=== PATIENT | male | born 1960 | race Caucasian/White ===

== ENCOUNTER 2019-11-08 10:22 | Inpatient (IN) | payer OTHER ==
[2019-11-08 11:03] LABS: #Eosinphils 0.1 thou/uL (0.0-0.7); #Lymphocytes 0.6 thou/uL (1.20-3.40); #Monocytes 0.4 thou/uL (0.11-0.59); #Neutrophils 7.4 thou/uL (1.40-6.50); %Eosinophils 1.1 % (0.0-10.0); %Lymphocytes 7.2 % (21.0-51.0); %Neutrophils 86.7 % (42.0-75.0); Hemoglobin 10.9 g/dL (14.0-18.0); Mean Corpuscular HGB CONC 33.5 g/dL (32.0-36.0); Mean Corpuscular Hemoglobin 29.1 pg (27.0-31.0); Mean Corpuscular Volume 86.9 fL (78.0-98.0); Mean Platelet Volume 7.2 fL (7.4-10.4); Platelet Count 145 thou/uL (130-400); RBC Distribution Width 12.5 % (11.5-14.5); Red Blood Cell (RBC) Count 3.75 mill/uL (4.70-6.10); White Blood Cell (WBC) Count 8.5 thou/uL (4.8-10.8)
[2019-11-08] MEDS ORDERED: Ketorolac Tromethamine 30 MG/ML VIAL ONE (11:12)
[2019-11-08 11:24] LABS: ALT (SGPT) 19 U/L (8-55); AST (SGOT) 34 U/L (5-34); Albumin 2.9 g/dL (3.5-5.0); Alkaline Phosphatase 78 U/L (40-110); Anion Gap 12 mmol/L (10-20); BUN (Urea Nitrogen) 9 mg/dL (8.4-25.7); Bilirubin, Total 0.9 mg/dL (0.2-1.2); Calc. Creatinine Clearance 0 mL/min (70-130); Calcium 8.6 mg/dL (7.8-10.44); Carbon Dioxide 27 mmol/L (22-29); Chloride 93 mmol/L (98-107); Estimated GFR-MDRD Greater than 90; Globulin 4.3 g/dL (2.4-3.5); Glucose 277 mg/dL (70-105); Potassium 4.3 mmol/L (3.5-5.1); Protein, Total 7.2 g/dL (6.0-8.3); Sodium 128 mmol/L (136-145)
--- NOTE | 2019-11-08 12:21 | CT ---
CT abdomen and pelvis with IV contrast HISTORY:. Drainage from ventral hernia abscess. COMPARISON: 11/04/2019. FINDINGS: Small amount of bilateral pleural fluid is again demonstrated. Large mass of the left breas t is similar in appearance to the previous exam. TIPS stent in place. Hyperdense stones of the gallbladder fossa and extending inferiorly to the subhe patic space are similar in appearance to the prior study with small amount of adjacent gas. Small amount of pneumobilia also apparent. There is a very subtle wedge-shaped area of decreased density at the lateral right liver lobe dome. Possibly a small infarct or mass. Tiny cysts of the kidneys. Urinary bladder is decompressed by Lloyd catheter and contains small amount of intraluminal gas. At the far anterior margin of the spleen is a very small 1.6 cm rounded fluid collection with periphe ral enhancement. The large right abdominal ventral hernia is slightly smaller than on the most recent exam. It now oleg sures up to 20.7 cm greatest oblique width by 7.6 cm depth. Percutaneous drain has been pulled back since its placement 4 days ago, although the loop remains within the abscess, so that it should be dr fontaine. The large skin defect over the abscess at the right lower quadrant has become more pronounced, with f luid on the surface of the skin. There is a 1.2 cm hyperdense stone in the dependent portion of the ventral hernia abscess. IMPRESSION : While the large abscess associated with the right ventral abdominal wall hernia has decreased slightl y in size, there is now a large area of skin defect over the superficial surface with fluid on the skin surface, correlating with the clinical findings of external rupture. Catheter has been pulled ba ck slightly but remains within the abscess cavity. The small calcification within the ventral hernia abscess is likely related to the ruptured gallbladd er. Additional stones and small amount of gas remain immediately inferior to the liver. Large left breast mass again demonstrated. Small bilateral pleural effusions.
[2019-11-08] MEDS ORDERED: Iopamidol-370 76% 500 ML 1 ML ONE (13:30)
--- NOTE | 2019-11-08 13:32 | CT ---
CT ABDOMEN AND PELVIS WITH IV CONTRAST: HISTORY: Right perianal swelling and pain. COMPARISON: None. FINDINGS: There are dependent changes in the lung bases. There are changes of cirrhosis of the liver, cholelit hiasis, and splenomegaly (19 cm). The pancreas, adrenal glands, and kidneys are unremarkable. No fr ee air, free fluid, or lymphadenopathy is seen in the abdomen or pelvis. There are vascular calcific ations without evidence of aneurysmal dilatation of the abdominal aorta. There are degenerative gibbons ges in the spine. There is a Lloyd catheter in the urinary bladder which is decompressed with presence of air. There i s a 6 x 8 cm fluid collection in the region of the right prostate and adjacent pelvis. A smaller 2 c m similar lesion is seen posteriorly to the left of midline within the prostate. Another mass is seen in the right perirectal region extending inferiorly into the perineum and glutea l fold measuring about 7 cm in AP dimension. This has the attenuation values of soft tissue. IMPRESSION: Pelvic, perineal, and right gluteal findings may be due to infection or malignancy/metastatic disease . Discussed over the telephone with the ER physician, Dr. Sid Dyer, at 11:59 a.m. CODE MENDEZ POS: JESSICA
[2019-11-08] MEDS ORDERED: Cefepime 2 GM VIAL ONE (14:16)
[2019-11-08] MEDS ORDERED: Vancomycin 1 GM/200 ML BAG ONE (14:59)
[2019-11-08] MEDS ORDERED: Dextrose 5% in Water 1,000 ML IV PRN (18:16)
[2019-11-08] MEDS ORDERED: Dextrose 50% Abboject 50 ML SYRINGE SLOW IVP PRN (18:16)
[2019-11-08] MEDS ORDERED: Insulin Regular 300 UNITS/3 ML VIAL SC PRN (18:16)
[2019-11-08 19:05] VITALS: BMI 27.4
--- NOTE | 2019-11-08 19:46 | HP ---
PRIMARY CARE PHYSICIAN: Out of town. CHIEF COMPLAINT: Pain in rectal area. HISTORY OF PRESENT ILLNESS: The patient is a 58-year-old male with past medical history significant for diabetes and elevated cholesterol. He presented to the ER today for perirectal pain that has lasted for 3 weeks. The patient states that he had recently been treated at [facility] for this pain and also generalized weakness. He stated whenever he would try to stand, he would urinate or possibly defecate on himself as he is unable to make it to the toilet in time and was seen in the ER and admitted at that hospital for that condition. He is also having real painful urination. They prescribed him IV antibiotics and [place] [facility] while he receives these antibiotics. Normally at home, he is ambulatory and self-sufficient. While at the hospital at [facility], they did a CT scan which he does not know the results of, but that showed a "sore on his colon." He states that when he was transferred to the usp in [place], he was told he will be receiving 3 different antibiotics by IV daily and he has only been receiving one since he got here. He did test positive for COVID-19 approximately 2 weeks ago in the usp. He said he was asymptomatic with this finding. Today, in the ER, they completed blood work and a pelvic CT. The patient also states that he has had loose stools for a number of weeks now. He is unsure if it started after his antibiotics were began at the other hospital or if it was occurring before then. PAST MEDICAL HISTORY: Diabetes type 2, elevated cholesterol. PAST SURGICAL HISTORY: Left BKA in 2017 and a cardiac stent. ALLERGIES: MORPHINE CAUSES HALLUCINATIONS. MEDICATIONS: As reported from the ER; 1. Docusate 100 mg oral 2 times a day. 2. Melatonin 3 mg oral at night. 3. [place] 10 mg/325 mg 1 tab every 6 hours as needed for pain. 4. Vancomycin 1.25 g IV piggyback once in the morning. 5. Buspirone 15 mg oral 2 times a day. 6. Metformin a 1000 mg 2 times a day. 7. Clopidogrel 75 mg once a day. 8. Gabapentin 600 mg 3 times a day. 9. Simvastatin 20 mg at night. SOCIAL HISTORY: The patient normally lives at home in a self-sufficient home on his own. However, he is currently living at a usp in [facility] so he can receive IV antibiotics. The patient quit smoking a few months ago. He denies any alcohol or drug use. FAMILY HISTORY: No relevant family history. REVIEW OF SYSTEMS: All other review of systems are negative unless noted in the HPI. PHYSICAL EXAMINATION: VITAL SIGNS: Blood pressure 132/71, pulse 63, respiratory rate 15, temp 98.9 orally, pain zero, O2 saturation 98% on room air. GENERAL: The patient in no apparent distress. HEAD: Atraumatic, normocephalic. EYES: PERRLA. Extraocular muscles are intact. ENT: Mucous membranes moist. NECK: Normal range of motion. Trachea midline. RESPIRATORY: Regular chest rise with breath sounds clear. No wheezing, no rales, no rhonchi. CARDIOVASCULAR: Regular rate and rhythm. No murmurs, no gallops. No rubs. ABDOMEN: Bowel sounds normal. Nontender. No guarding. No rigidity. GENITOURINARY: Large firm area of swelling and induration in the right medial aspect of the right buttock. EXTREMITIES: Normal range of motion. Posterior tibial pulse intact on the right. There is a left BKA. NEURO: The patient oriented to person, place, and time. Normal speech. SKIN: Warm, dry, and intact. Increased warmth at a right buttock site. LABORATORIES AND IMAGING: White blood cells 8.5, hemoglobin 10.9, hematocrit 32.6. Sodium 128, potassium 4.3, chloride 93, BUN 9, creatinine 0.81 and GFR greater than 90, glucose 277. Abdomen and pelvis CT shows pelvic, perineal, and right gluteal findings that may be due to infection or malignancy, metastatic disease, splenomegaly at 19 cm. There is a 6 x 8 cm fluid collection in the region of the right prostate and adjacent pelvis. There is a smaller 2 cm similar lesion seen posteriorly to the left of midline within the prostate. There is another mass that is seen in the right perirectal region extending inferiorly into the perineum and gluteal fold measures about 7 cm in AP dimension and has attenuation values of a soft tissue. IMPRESSION AND PLAN: After the CT findings, General Surgery, Urology, and Infectious Disease were all consulted. The patient to continue his IV antibiotics that were started in the ER, monitor for any further signs of infection, continue to watch his lab work daily or more often if needed. Due to complaint of patient's loose stools, we will test for C difficile with his recent antibiotic usage. We will also attempt to control patient's pain with p.r.n. medications. His blood sugars will be monitored a.c. and at bedtime with sliding scale insulin if they are elevated. The patient will be inpatient on the medical floor. Medical records have been requested from [facility] as his given history was scattered some during the interview. He wishes to be a full code. His surrogate decision maker is his ex-, Nela Gutierrez. This patient has been discussed with Dr. Perdomo. Job ID: [id number]
[2019-11-08] MEDS: Ketorolac Tromethamine 30 MG/ML VIAL IVP PRN (20:38)
[2019-11-08] MEDS: Famotidine 20 MG TAB PO SCH (20:38)
[2019-11-08] MEDS: HumaLOG 300 UNITS/3 ML VIAL SC PRN (21:48)
[2019-11-08] MEDS: Vancomycin 1.5 GRAM/300 ML BAG 1.5 GM in Premix Bag 1 BAG IVPB SCH (21:51)
[2019-11-08] MEDS: HYDROcodone/Acetaminophen 5/325 mg Tablet PO PRN (21:59)
[2019-11-09] MEDS: Cefepime 2 GM in Sodium Chloride 0.9% 100 ML IVPB SCH ×2 (02:05→13:23)
[2019-11-09] MEDS: Ketorolac Tromethamine 30 MG/ML VIAL IVP PRN ×3 (02:06→15:39)
[2019-11-09] MEDS ORDERED: Vancomycin 1 GM in Premix Bag 1 BAG IVPB SCH (03:00)
[2019-11-09] MEDS: HYDROcodone/Acetaminophen 5/325 mg Tablet PO PRN (04:47)
[2019-11-09] MEDS: Vancomycin 1.5 GRAM/300 ML BAG 1.5 GM in Premix Bag 1 BAG IVPB SCH ×3 (05:05→22:50)
[2019-11-09] MEDS: HumaLOG 300 UNITS/3 ML VIAL SC PRN ×4 (05:39→20:22)
[2019-11-09 06:05] LABS: #Eosinphils 0.2 thou/uL (0.0-0.7); #Lymphocytes 0.7 thou/uL (1.20-3.40); #Monocytes 0.5 thou/uL (0.11-0.59); #Neutrophils 6.6 thou/uL (1.40-6.50); %Basophils 0.6 % (0.0-1.0); %Lymphocytes 8.9 % (21.0-51.0); %Monocytes 5.9 % (0.0-10.0); %Neutrophils 82.6 % (42.0-75.0); Hemoglobin 10.2 g/dL (14.0-18.0); Mean Corpuscular HGB CONC 32.3 g/dL (32.0-36.0); Mean Corpuscular Hemoglobin 28.3 pg (27.0-31.0); Mean Corpuscular Volume 87.4 fL (78.0-98.0); Mean Platelet Volume 7.9 fL (7.4-10.4); Platelet Count 145 thou/uL (130-400); RBC Distribution Width 12.7 % (11.5-14.5)
[2019-11-09 06:23] LABS: Anion Gap 11 mmol/L (10-20); BUN (Urea Nitrogen) 11 mg/dL (8.4-25.7); Calc. Creatinine Clearance 134 mL/min (70-130); Calcium 8.3 mg/dL (7.8-10.44); Carbon Dioxide 22 mmol/L (22-29); Chloride 97 mmol/L (98-107); Estimated GFR-MDRD Greater than 90; Glucose 265 mg/dL (70-105); Potassium 4.2 mmol/L (3.5-5.1); Sodium 126 mmol/L (136-145)
[2019-11-09] MEDS: Famotidine 20 MG TAB PO SCH ×2 (08:26→20:00)
--- NOTE | 2019-11-09 12:02 | PDOC.HOSPP ---
- Subjective Encounter Date: 11/09/19 Encounter Time: 12:00 Subjective: Patient complains of severe anxiety from being in the hospital, asking for Xanax. Continued rectal pain, weakness in legs. Usually uses a wheelchair at home, though does have a prosthesis for his left BKA. [facility] to get his IV infusions through his PICC line. Patient not sure where the bacteria they were treating was isolated from, but thinks either the urine or the blood. No surgical procedures or biopsy/drainage done in [facility] per patient report. - Objective Vital Signs & Weight: Vital Signs (12 hours) Temp Pulse Resp BP Pulse Ox 11/09/19 11:48 97.8 F 56 L 18 150/73 H 97 11/09/19 08:30 98.4 F 65 16 112/64 99 11/09/19 04:00 98.2 F 63 18 134/65 99 Weight Weight 208 lb I&O: 11/08/19 11/09/19 11/10/19 06:59 06:59 06:59 Intake Total 1500 Output Total 1200 Balance 300 Result Diagrams: 11/09/19 05:53 11/09/19 05:53 Additional Labs: Accuchecks 11/09/19 04:55 POC Glucose 282 H Hospitalist ROS - Review of Systems Constitutional: reports: chills. denies: fever Respiratory: denies: cough, shortness of breath Cardiovascular: denies: chest pain, palpitations Gastrointestinal: denies: nausea, vomiting, abdominal pain, diarrhea, constipation Other: anxiety, stressed, feels like things are overwhelming - Medication Medications: Active Medications Generic Name Dose Route Start Last Admin Trade Name Dorene PRN Reason Stop Dose Admin Famotidine 20 mg 11/08/19 21:00 11/09/19 08:26 Pepcid PO 20 mg BID PAULA Administration Cefepime HCl 2 gm/ Sodium 100 mls @ 200 mls/hr 11/09/19 02:00 11/09/19 02:05 Chloride IVPB 100 mls 0200,1400 PAULA Administration Vancomycin HCl 1.5 gm/ Device 300 mls @ 200 mls/hr 11/08/19 22:00 11/09/19 05 :05 IVPB 300 mls Q8HR PAULA Administration Insulin Human Lispro 0 units 11/08/19 18:16 07/21/20 05:39 Humalog SC 4 unit .MILD SLIDING SCALE PRN Administration Mild Correctional Scale Ketorolac Tromethamine 30 mg 11/08/19 18:16 11/09/19 08:27 Toradol IVP 11/13/19 12:16 30 mg Q6H PRN Administration Pain - Exam General Appearance: NAD, awake alert ENT: moist mucosa Heart: RRR, no murmur, no gallops, no rubs Respiratory: CTAB, no wheezes, no rales, no ronchi Gastrointestinal: soft, non-tender, non-distended, normal bowel sounds Psychiatric: normal behavior, A&O x 3 Psychiatric - other findings: anxious and a bit tearful Hosp A/P (1) Pelvic fluid collection Code(s): R18.8 - OTHER ASCITES Status: Acute Plan: abcess vs cyst vs cancer (2) Diabetes mellitus type 2 in nonobese Code(s): E11.9 - TYPE 2 DIABETES MELLITUS WITHOUT COMPLICATIONS Status: Chronic (3) Hyperlipidemia Code(s): E78.5 - HYPERLIPIDEMIA, UNSPECIFIED Status: Chronic (4) Peripheral neuropathy Code(s): G62.9 - POLYNEUROPATHY, UNSPECIFIED Status: Chronic (5) Anxiety Code(s): F41.9 - ANXIETY DISORDER, UNSPECIFIED Status: Acute - Plan Patient was on Vancomycin for likely infection, [facility] while receiving. Worsened symptoms so admitted her. Will need to obtain old records from [facility]. General surgery and urology consulted. Low sodium, will ask Dr. Carter for his help. Blood sugars uncontrolled, may need to add scheduled insulin. Resume home meds first.
[2019-11-09] MEDS: ALPRAZolam 0.25 MG TAB PO PRN (13:19)
[2019-11-09] MEDS: HYDROcodone/Acetaminophen 10/325 mg Tablet PO PRN ×2 (13:19→20:01)
[2019-11-09] MEDS: Gabapentin 300 MG CAP PO SCH ×2 (15:09→20:00)
--- NOTE | 2019-11-09 18:56 | CON ---
DATE OF CONSULTATION: HISTORY OF PRESENT ILLNESS: Lew Bueno is a 58-year-old male, who spent some time in the hospital in [place], transferred to a care facility halfway recently. He has had an indwelling Lloyd catheter for some time. He has been treated with intravenous antibiotics for some sort of infection. He was seen at this facility for complaints of pain. He was appreciated to have right perirectal gluteal induration and redness. He is afebrile. His white count is normal. He underwent a CAT scan of the abdomen and pelvis, revealing some periprosthetic inflammatory changes and abscess. He has been admitted by the Medical Service. Dr. Stanford has seen him as well as Dr. Sullivan. I have talked to Dr. Stanford. Plan at this time is to go to the operating room tomorrow (had regular diet today) and plan incision and drainage of abscesses and Dr. Stanford will plan a cystoscopy. The patient states he has had a chronic indwelling Lloyd because of painful urination and I just left it in place. ALLERGIES: LISTED CODEINE AND MORPHINE. MEDICATIONS: Home medications; 1. Simvastatin. 2. Gabapentin. 3. Plavix. 4. Metformin. 5. Buspirone. 6. Vancomycin. 7. MiraLAX. 8. Melatonin. 9. Hydrocodone. PAST SURGICAL HISTORY: Aortobifem, bilateral fem-pops, left BKA, history of cardiac stent. PAST MEDICAL HISTORY: Diabetes mellitus type 2, elevated cholesterol. SOCIAL HISTORY: The patient normally lives at home prior to this current illness, but he was admitted to a care facility, receiving intravenous antibiotics. The patient quit smoking several months ago. No alcohol or drug use in the past. He has worked in construction in the past. REVIEW OF SYSTEMS: Noncontributory otherwise. PHYSICAL EXAMINATION: VITAL SIGNS: Temperature 97.8 degrees, pulse 56, blood pressure 150/73. Weight 208 pounds, height is 6 feet and 1 inches, and 27 BMI. HEAD EARS, EYES, NOSE, AND THROAT: Unremarkable. LUNGS: Clear to auscultation. CARDIAC: Regular rate and rhythm without murmur or gallop. ABDOMEN: Soft, nontender, midline scar per above. EXTREMITIES: Aortobifemoral bypass. He has palpable femoral pulses bilaterally. He has a left BKA. : He has a Lloyd catheter in place. Right perirectal area is indurated and red. Extremities, as noted above, no ankle edema. LABORATORY DATA: White count 8, hemoglobin 10.2. BUN and creatinine are 11 and 0.82. ASSESSMENT AND PLAN: 1. Severe periprostatic and vesicular changes, cystoscopy per Dr. Stanford. Chronic indwelling Lloyd, treatment per Dr. Stanford. Right gluteal perirectal abscess, probably secondary to a periprosthetic infection, we will plan incision and drainage tomorrow along with Dr. Stanford with cystoscopy. 2. Peripheral arterial disease. 3. History of tobacco abuse. 4. Infectious Disease consult pending. Job ID: [id number]
[2019-11-09 19:51] LABS: Hemoglobin A1c 9.7 % (4.0-6.0)
[2019-11-09] MEDS: busPIRone HCl 5 MG TAB PO SCH (20:00)
[2019-11-09] MEDS: Atorvastatin Calcium 10 MG TAB PO SCH (20:00)
[2019-11-09] MEDS: Melatonin 3 MG TAB PO PRN (20:01)
[2019-11-09] MEDS: Polyethylene Glycol 3350 17 GM Packet PO SCH (20:02)
[2019-11-09] MEDS: Docusate 100 MG CAP PO SCH (20:21)
[2019-11-09 21:49] LABS: Vancomycin, Trough 23.2 ug/mL
[2019-11-10 00:08] LABS: HIV (1/2) Antibody/Antigen Non-Reactive (NonReactive); HIV 1/2 INDEX 0.25 S/CO (<1.00)
[2019-11-10 00:11] LABS: Hep C IgG Ab Reflex HepC Qnt (NonReactive)
[2019-11-10] MEDS: ALPRAZolam 0.25 MG TAB PO PRN ×3 (00:29→23:03)
[2019-11-10] MEDS: Ketorolac Tromethamine 30 MG/ML VIAL IVP PRN ×2 (00:29→08:44)
[2019-11-10] MEDS: Cefepime 2 GM in Sodium Chloride 0.9% 100 ML IVPB SCH ×2 (00:45→14:55)
--- NOTE | 2019-11-10 01:14 | CON ---
DATE OF CONSULTATION: 11/09/2019 REASON FOR CONSULTATION: History of COVID positive PCR a few weeks ago as well as type 2 diabetes and inflammatory process in the pelvis/prostate area. HISTORY OF PRESENT ILLNESS: A 58-year-old, first admission to this hospital, who has a history of prior drug use, particularly methamphetamine and cocaine and alcoholism as well as liver cirrhosis, who used to live in [place] next to the [place] by himself. He developed severe constipation and rectal pain, so he was admitted to a small hospital in [place] and reportedly tested positive for COVID there about 2 to 3 weeks ago and in addition to that, they found out that he had an inflammatory process in the perirectal area. It is not clear to me that they did any surgical procedure. It looks like they did not and he was just given antimicrobial therapy intravenously through a PICC line in the right upper extremity. The patient was transferred to a shelter in this area to continue receiving the antimicrobials and the plan for him was to go back to [place] or some other place, he is not sure right now, but nonetheless, he developed fever and continued to experience severe pain in the rectal area, still had a Lloyd catheter in place and so he ended up being brought to this hospital on arrival. His BP was 111/66, pulse 69, and temperature 99.8, O2 saturation was 95% room air. He does not appear in distress. There was an area of inflammatory change in the perirectal area, particularly on the right side. There was pain on digital rectal examination. The CT of the abdomen was done and the results are reviewed below. The patient denies any headaches, visual symptoms, sore throat, odynophagia, or dysphagia. No back pain. No cough, sputum production, or chest pain. No abdominal pain. Still has a Lloyd catheter in place. PAST MEDICAL HISTORY: Type 2 diabetes, BKA left side resulting from complications of neuropathy and infections in the left foot. History of liver cirrhosis secondary to alcoholism, drug use including cocaine and methamphetamine, chronic smoking, type 2 diabetes, hyperlipidemia, coronary artery disease with prior cardiac stenting. SOCIAL HISTORY: As above. He is still smoking cigarettes, but has not used meth or cocaine for a long time and reportedly abstinent from alcoholic beverages. He used to live by himself in a trailer home close to [place]. He is currently admitted to a shelter in the area. ALLERGIES: CODEINE AND MORPHINE. CURRENT MEDICATIONS: Include BuSpar, cefepime, gabapentin, vancomycin, and metformin as well. FAMILY HISTORY: Noncontributory. PHYSICAL EXAMINATION: VITAL SIGNS: Current T-max 99.2, blood pressure 130/60, pulse 63, respirations 18, and O2 saturation 96%. SKIN: Shows the area of the right perirectal region, gluteal region with an area of induration and erythema extending for about 12 to 15 cm along the gluteal area and perirectal region starting at the perineum and extending towards the mid posterior aspect of the right gluteal region medial side. The left BKA is well healed. The right foot has some areas of onychodystrophy and paronychia. The patient has a PICC line inserted in the right upper extremity, which appears without any abnormalities. There is no lymphadenopathy. HEENT: Ocular movements are conjugate. The patient has only a few remaining teeth in the mouth. NECK: Supple. No jugular vein distention. LUNGS: Symmetric clear breath sounds. HEART: S1 and S2. Regular rate. No S3 or S4. ABDOMEN: Soft, not distended, or tender. No ascites. No bladder distention. Lloyd catheter in place. No testicular or scrotal abnormalities noted. RECTAL: Exam was not done this time due to pain. EXTREMITIES: His pulses are 1+ in the right foot. Cap refill is normal. Plantar responses are flexor. He moves extremities on command. He is awake, oriented, follows commands, pretty good recollection. LABORATORY DATA: White cell count 8.5, hemoglobin 10.9, platelets 145 with 86% neutrophils. Sodium 126, creatinine 0.82. Liver profile normal. Albumin 2.9. Urinalysis was not done yet. C difficile in stool was negative. IMAGING STUDY: The patient had an imaging study of the abdomen and pelvis and there was a Lloyd catheter dependent changes in the lung bases, findings of cirrhosis of the liver, cholelithiasis, splenomegaly. Urinary bladder was decompressed. There was a 6 x 8 cm fluid collection in the right prostate and adjacent pelvis. A smaller 2 cm similar lesion posteriorly to the left of the midline within the prostate gland. There was another mass seen in the right perirectal region extending inferiorly into the perineum and gluteal fold measuring about 7 cm. ASSESSMENT: 1. History of liver cirrhosis secondary to alcoholism. 2. Methamphetamine and cocaine use with unknown hepatitis C or human immunodeficiency virus status. 3. Recently reportedly tested positive for COVID 2 or 3 weeks ago at the shelter or at the hospital that he was admitted to in [place]. 4. Chronic constipation and inflammatory process in the perineal area, which was identified in [place], for which the patient was receiving IV antimicrobial therapy at the shelter. 5. Persistence of this inflammatory process with evidence of prostate fluid collection and perirectal phlegmon, probably an abscess versus malignancy. DISCUSSION: The differential diagnosis includes UTI with prostate abscess and then extension into the perirectal area versus malignancy in view of the chronic constipation and pain. An infectious process with prostatitis, prostate abscess is the more likely scenario with extension into the perirectal tissues of perineal area. The usual pathogens including gram-negative rods and Staphylococcus aureus are the likely culprits here. The COVID situation is a complicating factor. Most likely, he does not have significant viral load any longer. A repeat PCR has been ordered prior to any surgical intervention and we are still awaiting on the results. I think the current antimicrobial regimen appears to be adequate for now. We are awaiting on the surgical intervention. It looks like Dr. Galvan and Urology are going to participate in the case and see what the findings reveal after whatever procedure is undertaken. We will check hepatitis C and HIV for completeness sake. Job ID: [id number]
--- NOTE | 2019-11-10 01:31 | CON ---
DATE OF CONSULTATION: 11/09/2019 REFERRING: Family Medicine Service. REASON FOR CONSULT: Perirectal, periprosthetic abscess. HISTORY OF PRESENT ILLNESS: Mr. Bueno is a pleasant 58-year-old male with past medical history of diabetes, hypertension, peripheral vascular disease, status post left BKA, presents with protracted history of perirectal pain and upper and lower back abscess. This all began initially with a spider bite in his left upper cervical back region with an abscess. He also had a second insect bite noted in his right buttock region and has had infection, which has been treated in [place] for infection, pain. He states that since this began, he has had difficulty urinating, and difficulty having bowel movements. Of note, he tested positive for COVID-19 about two weeks ago in the correction. He states in the correction , he remained on IV antibiotics, in which he was at [facility], receiving IV antibiotics and transferred locally. Typically prior to all these events, the patient was residing in a private residence. He had no urologic symptoms of difficulty emptying his bladder before his abscess in the pelvis. Prior CT per review of records in [place] demonstrated "sore on his colon," this is likely reflecting his perirectal abscess, however, history is somewhat unclear. He was receiving three different daily antibiotics through his PICC line before being transferred to [facility]. In the emergency room, he had a staging pelvic CT scan, which demonstrates a large perirectal abscess and periprosthetic abscess, therefore, General Surgery and urologic consultation was obtained. The patient currently resting comfortably, he is pleasant, he is frustrated that no progress was made in [place] and was monitored with IV antibiotics and not drained for his abscess. PAST MEDICAL HISTORY: Includes type 2 diabetes, hypercholesteremia, coronary artery disease, and peripheral vascular disease. PAST SURGICAL HISTORY: Includes left BKA in 2017, cardiac stents, relates laparotomy in the remote past secondary to bowel obstruction, bilateral femoral stents per the patient. ALLERGIES: ALLERGIC TO MORPHINE, WHICH CAUSES HALLUCINATIONS. MEDICATIONS: Include, 1. Xanax. 2. Lipitor. 3. BuSpar. Currently on, 1. Cefepime. 2. Colace. 3. Pepcid. 4. Neurontin. 5. Sliding scale insulin. 6. Hydrocodone. 7. Toradol p.r.n. 8. LR. 9. Metformin. 10. Vancomycin. Home medications include, 1. Plavix. 2. Metformin as above. SOCIAL HISTORY: Typically lives at home, self-sufficient; however, he has been at correction in [place] due to IV antibiotics. History of tobacco abuse, quit few months ago. He denies illicit drug use or alcohol abuse. FAMILY HISTORY: Noncontributory. REVIEW OF SYSTEMS: 10-point review of systems as above, otherwise noncontributory. PHYSICAL EXAMINATION: VITAL SIGNS: Stable at temperature 98, pulse 63, respiratory rate 18, oxygen saturation 96%, and blood pressure 133/66. GENERAL: The patient is in no acute distress. Pleasant male, cooperative to physical exam. HEENT: Grossly unremarkable. I's and O's are 1500 in and 1200 out. He has an indwelling Lloyd catheter placed about a month ago. HEART: Regular rate. LUNGS: Clear. ABDOMEN: Soft. No rigidity. No rebound. There is midline laparotomy incision below to the level of the umbilicus. No evidence of incisional hernia is appreciated. : Circumcised phallus. Meatus is grossly unremarkable. Lloyd catheter demonstrating clear yellow urine. Testes are descended with no evidence of reactive epididymo-orchitis, scrotal erythema of concern. Perineum inspected demonstrating no evidence of perineal fluctuance of concern. EXTREMITIES: Left lower extremity consistent with BKA. Right lower extremity is grossly unremarkable. SKIN: Of note, there is a small erythema consistent with insect bite at the level of his lower cervical spine. MUSCULOSKELETAL: The patient was turned to his side and his buttock region was inspected. I did not perform a digital rectal exam given his discomfort. He has a fluctuant mass in the right ischial fossa perirectal region. DIAGNOSTIC STUDIES: CT of the abdomen and pelvis with IV contrast imaging results, which I have reviewed myself; results: Pelvic, perineal, right gluteal abscess measuring 6 x 8 cm. Lloyd catheter in the bladder, which is decompressed with presence of air within the Lloyd. The large fluid collection appears to be perirectal, gluteal, and tracking toward the prostate. There is a 2 cm similar lesion posteriorly left midline of the prostate. Prostate volume per my review is about 42 g with no median lobe. There is mass effect of the posterior bladder, prostate region due to a large perirectal gluteal abscess. CT also demonstrates cholelithiasis and splenomegaly. No lymphadenopathy is appreciated. Vascular calcification without dilatation. IMPRESSION AND PLAN: 1. Mr. Bueno is a 58-year-old male with history of diabetes, peripheral vascular disease, prior history of laparotomy. 2. Recent COVID-19 testing positive two weeks ago, presents for perirectal, periprosthetic abscess large in size causing mass effect of the prostate and inferior aspect of the bladder. I did discuss his case with Dr. Galvan, who was already boarded the patient for I and D of perirectal abscess tomorrow. I do recommend cystoscopy concomitantly perform. I did discuss with him also regarding options of suprapubic tube. Recommend Flomax, as he has had difficulty urinating due to mass effect from a large perirectal abscess. Recommend checking hemoglobin A1c, hepatitis, HIV panel. The patient is n.p.o. after midnight. As the abscess within the prostate is only 2 cm, I expect that with broad-spectrum antibiotic therapy and appropriate sensitivity should resolve. Suprapubic tube for urinary diversion discussed Job ID: [id number] MTDD
[2019-11-10] MEDS: Vancomycin 1.5 GRAM/300 ML BAG 1.5 GM in Premix Bag 1 BAG IVPB SCH ×2 (05:28→18:57)
[2019-11-10] MEDS: HYDROcodone/Acetaminophen 10/325 mg Tablet PO PRN ×2 (05:29→19:56)
[2019-11-10] MEDS: HumaLOG 300 UNITS/3 ML VIAL SC PRN ×2 (06:23→21:27)
[2019-11-10 06:45] LABS: #Eosinphils 0.2 thou/uL (0.0-0.7); #Lymphocytes 0.9 thou/uL (1.20-3.40); #Monocytes 0.6 thou/uL (0.11-0.59); %Basophils 0.3 % (0.0-1.0); %Lymphocytes 11.6 % (21.0-51.0); %Monocytes 8.1 % (0.0-10.0); %Neutrophils 77.9 % (42.0-75.0); Hemoglobin 11.1 g/dL (14.0-18.0); Mean Corpuscular HGB CONC 32.9 g/dL (32.0-36.0); Mean Corpuscular Hemoglobin 28.7 pg (27.0-31.0); Mean Corpuscular Volume 87.3 fL (78.0-98.0); Mean Platelet Volume 7.6 fL (7.4-10.4); Platelet Count 147 thou/uL (130-400); RBC Distribution Width 12.6 % (11.5-14.5); Red Blood Cell (RBC) Count 3.88 mill/uL (4.70-6.10); White Blood Cell (WBC) Count 7.7 thou/uL (4.8-10.8)
[2019-11-10 07:06] LABS: Anion Gap 12 mmol/L (10-20); BUN (Urea Nitrogen) 10 mg/dL (8.4-25.7); Calc. Creatinine Clearance 139 mL/min (70-130); Calcium 8.6 mg/dL (7.8-10.44); Carbon Dioxide 24 mmol/L (22-29); Chloride 97 mmol/L (98-107); Estimated GFR-MDRD Greater than 90; Glucose 226 mg/dL (70-105); Potassium 4.4 mmol/L (3.5-5.1); Sodium 129 mmol/L (136-145)
[2019-11-10] MEDS: Lactated Ringer's 1,000 ML IV SCH ×2 (08:10→18:57)
[2019-11-10] MEDS: metFORMIN 500 MG TAB PO SCH ×2 (08:11→18:56)
[2019-11-10] MEDS: Tamsulosin HCl 0.4 MG CAP PO SCH (08:11)
[2019-11-10] MEDS: busPIRone HCl 5 MG TAB PO SCH ×2 (08:11→19:53)
[2019-11-10] MEDS: Famotidine 20 MG TAB PO SCH ×2 (08:11→19:53)
[2019-11-10] MEDS: Docusate 100 MG CAP PO SCH ×2 (08:11→19:53)
[2019-11-10] MEDS: Gabapentin 300 MG CAP PO SCH ×3 (08:11→19:54)
--- NOTE | 2019-11-10 08:40 | PDOC.HOSPP ---
- Subjective Encounter Date: 11/10/19 Encounter Time: 11:00 Subjective: Patient about to go for surgery. Feels much better with the low dose Xanax but still a bit teary on and off per nurse. Pain in bottom unchanged. - Objective Vital Signs & Weight: Vital Signs (12 hours) Temp Pulse Resp BP Pulse Ox 11/10/19 06:00 98.9 F 64 18 137/69 96 Weight Admit Weight 208 lb Weight 208 lb I&O: 11/09/19 11/10/19 11/11/19 06:59 06:59 06:59 Intake Total 1500 3030 Output Total 1200 2850 Balance 300 180 Result Diagrams: 11/10/19 06:06 11/10/19 06:06 Additional Labs: Accuchecks 11/09/19 11/09/19 11/09/19 15:57 11:54 04:55 POC Glucose 271 H 343 H 282 H 11/08/19 11/08/19 20:55 18:37 POC Glucose 290 H 312 H Hospitalist ROS - Review of Systems Constitutional: denies: fever, chills Respiratory: denies: cough, shortness of breath Cardiovascular: denies: chest pain, palpitations Gastrointestinal: denies: nausea, vomiting - Medication Medications: Active Medications Generic Name Dose Route Start Last Admin Trade Name Freq PRN Reason Stop Dose Admin Hydrocodone Bitart/Acetaminophen 1 tab 11/09/19 11:58 11/10/19 05:29 [place] 10/325 PO 1 tab Q6H PRN Administration Pain Alprazolam 0.25 mg 11/09/19 12:46 11/10/19 08:11 Xanax PO 0.25 mg TIDPRN PRN Administration Anxiety Atorvastatin Calcium 10 mg 11/09/19 21:00 11/09/19 20:00 Lipitor PO 10 mg HS PAULA Administration Buspirone HCl 15 mg 11/09/19 21:00 11/10/19 08:11 Buspar PO 15 mg BID PAULA Administration Docusate Sodium 100 mg 11/09/19 21:00 11/10/19 08:11 Colace PO 100 mg BID PAULA Administration Famotidine 20 mg 11/08/19 21:00 11/10/19 08:11 Pepcid PO 20 mg BID PAULA Administration Gabapentin 600 mg 11/09/19 15:00 11/10/19 08:11 Neurontin PO 600 mg TID PAULA Administration Cefepime HCl 2 gm/ Sodium 100 mls @ 200 mls/hr 11/09/19 02:00 11/10/19 00:45 Chloride IVPB 100 mls 0200,1400 PAULA Administration Lactated Ringer's 1,000 mls @ 100 mls/hr 11/10/19 08:00 11/10/19 08:10 Lactated Ringer's IV 1,000 mls .Q10H PAULA Administration Vancomycin HCl 1.5 gm/ Device 300 mls @ 200 mls/hr 11/10/19 06:00 11/10/19 05 :28 IVPB 300 mls 0600,1800 PAULA Administration Insulin Human Lispro 0 units 11/08/19 18:16 11/10/19 06:23 Humalog SC 4 unit .MILD SLIDING SCALE PRN Administration Mild Correctional Scale Ketorolac Tromethamine 30 mg 11/08/19 18:16 11/10/19 00:29 Toradol IVP 11/13/19 12:16 30 mg Q6H PRN Administration Pain Melatonin 3 mg 11/09/19 11:58 11/09/19 20:01 Melatonin PO 3 mg HSPRN PRN Administration Insomnia Metformin HCl 1,000 mg 11/10/19 08:00 11/10/19 08:11 Glucophage PO 1,000 mg BID-WM PAULA Administration Polyethylene Glycol 34 gm 11/09/19 21:00 11/09/19 20:02 Miralax PO 34 gm BID PAULA Administration Tamsulosin HCl 0.4 mg 11/10/19 09:00 11/10/19 08:11 Flomax PO 0.4 mg DAILY PAULA Administration - Exam General Appearance: NAD, awake alert ENT: moist mucosa Heart: RRR, no murmur, no gallops, no rubs Respiratory: CTAB, no wheezes, no rales, no ronchi Gastrointestinal: soft, non-tender, non-distended, normal bowel sounds Psychiatric: normal affect, normal behavior, A&O x 3 Hosp A/P (1) Pelvic fluid collection Code(s): R18.8 - OTHER ASCITES Status: Acute (2) Diabetes mellitus type 2 in nonobese Code(s): E11.9 - TYPE 2 DIABETES MELLITUS WITHOUT COMPLICATIONS Status: Chronic (3) Hyperlipidemia Code(s): E78.5 - HYPERLIPIDEMIA, UNSPECIFIED Status: Chronic (4) Peripheral neuropathy Code(s): G62.9 - POLYNEUROPATHY, UNSPECIFIED Status: Chronic (5) Anxiety Code(s): F41.9 - ANXIETY DISORDER, UNSPECIFIED Status: Acute - Plan Will need to obtain old records from [place]. General surgery and urology consulted- plan for surgical I&D today as well as cystoscopy Low sodium, will ask Dr. Carter for his help. Blood sugars uncontrolled on home meds, will add a scheduled Lantus dose
[2019-11-10] MEDS ORDERED: Insulin Glargine 10 UNITS in Pre-Filled Syringe 1 EACH SC SCH ×2 (09:00→21:00)
[2019-11-10] MEDS ORDERED: Vancomycin 1.5 GRAM/300 ML BAG 1.5 GM in Premix Bag 1 BAG IVPB SCH (09:00)
[2019-11-10] MEDS: Polyethylene Glycol 3350 17 GM Packet PO SCH ×2 (10:21→19:54)
--- NOTE | 2019-11-10 10:41 | CON ---
DATE OF CONSULTATION: 11/09/2019 CONSULTING PHYSICIAN: Juan Perdomo MD REASON FOR CONSULTATION: Hyponatremia. REASON FOR ADMISSION: Pain in the rectal area. HISTORY OF PRESENT ILLNESS: This is a 58-year-old male with history of type 2 diabetes, hyperlipidemia, who came to the hospital with above complaints. The patient was found to have hyponatremia. He had a sodium of 128 on admission, now it is 126. Nephrology consulted. The patient is reporting that he is not able to eat better, but he is drinking a lot of water. No fever or chills. No chest pain or palpitation. PAST MEDICAL HISTORY: Positive for type 2 diabetes, hyperlipidemia. PAST SURGICAL HISTORY: Left BKA, cardiac stent. HOME MEDICATIONS: Reviewed. ALLERGIES: TO MORPHINE. SOCIAL HISTORY: No smoking, alcohol, or illicit drugs abuse. FAMILY HISTORY: No history of kidney disease. REVIEW OF SYSTEMS: CONSTITUTIONAL: Negative for weight loss or gain, ability to conduct usual activities. SKIN: Negative for rash, itching. EYES: Negative for double vision, pain. ENT/MOUTH: Negative for nose bleeding, neck stiffness, pain, tenderness. CARDIOVASCULAR: Negative for palpitations, dyspnea on exertion, orthopnea. RESPIRATORY: Negative for shortness of breath, wheezing, cough, hemoptysis, fever or night sweats. GASTROINTESTINAL: Negative for poor appetite, abdominal pain, heartburn, nausea, vomiting, constipation, or diarrhea. GENITOURINARY: Negative for urgency, frequency, dysuria, nocturia. MUSCULOSKELETAL: Negative for pain, swelling. NEUROLOGIC/PSYCHIATRIC: Negative for anxiety, depression. ALLERGY/IMMUNOLOGIC: Negative for skin rash, bleeding tendency. PHYSICAL EXAMINATION: GENERAL: Reveals a well-built male, in no apparent distress. VITAL SIGNS: Temperature 98.4, pulse 65, respiratory rate 16, and blood pressure 112/64. HEENT: Atraumatic, normocephalic. Oral mucosa is moist. NECK: Supple. CV: S1 and S2. Rate and rhythm regular. RESPIRATORY: Clear. GASTROINTESTINAL: Abdomen is soft. MUSCULOSKELETAL: . DERMATOLOGIC: No skin rash. NEUROLOGIC: Alert and awake. PSYCHIATRIC: Normal mood and affect. LABORATORY DATA: Hemoglobin is 10.2. Potassium 4.2, sodium 126, BUN 11, and creatinine 0.82. ASSESSMENT AND PLAN: 1. Hyponatremia. We will check urine studies. The patient is euvolemic, could be hypovolemic too. We will check urine studies and we will continue fluid restriction for now. 2. Hypochloremia. 3. Edema, controlled. 4. Anemia of chronic disease. 5. History of hypertension. 6. Hypoalbuminemia. We will check urine studies and further plan will be based on the results and we will continue fluid restriction for now. Medication list reviewed. Thank you for the consult. Job ID: [id number]
[2019-11-10] MEDS ORDERED: PROPOFOL 200 MG/20 ML VIAL ONE (11:08)
[2019-11-10] MEDS ORDERED: Ketorolac Tromethamine 30 MG/ML VIAL ONE (11:08)
[2019-11-10] MEDS ORDERED: PHENYLEPHRINE-NS 100 MCG/ML 10 ML SYRINGE ONE (11:08)
[2019-11-10] MEDS ORDERED: Lidocaine 1% PF 5 ML VIAL ONE (11:08)
[2019-11-10] MEDS ORDERED: Ondansetron PF 4 MG/2 ML Vial ONE (11:08)
--- NOTE | 2019-11-10 12:08 | PRG ---
DATE OF SERVICE: 11/10/2019 SUBJECTIVE: The patient is on COVID isolation. OBJECTIVE: VITAL SIGNS: Temperature 98, pulse 64, respiratory rate 18, blood pressure 137/69. LABORATORY DATA: Sodium 129, creatinine 0.7. ASSESSMENT AND PLAN: 1. Hyponatremia, better. Continue fluid restriction if tolerated. 2. Hypochloremia. 3. Edema. 4. Anemia of chronic disease. 5. History of hypertension. 6. Hypoalbuminemia. 7. Sodium level is better. Monitor. Job ID: [id number]
[2019-11-10] MEDS ORDERED: Bupivacaine PF 0.5% 30 ML VIAL ONE (12:47)
[2019-11-10] MEDS ORDERED: Lidocaine 1% w/Epinephrine 1:100K 20 ML VIAL ONE (12:47)
[2019-11-10] MEDS ORDERED: Lidocaine 2% Jelly 5 ML TUBE ONE (12:47)
[2019-11-10] MEDS ORDERED: Fentanyl 100 MCG/2 ML VIAL ONE ×3 (12:55→17:16)
[2019-11-10 14:54] LABS: SARS-CoV-2 MS2 Positive; SARS-CoV-2 N Gene Positive; SARS-CoV-2 S Gene Positive; SARS-CoV-2 orf1ab Positive
[2019-11-10 14:55] LABS: SARS-CoV-2 by NAA DETECTED (NotDetected)
[2019-11-10] MEDS ORDERED: traMADol HCl 50 MG TAB PO PRN (17:13)
[2019-11-10] MEDS ORDERED: Acetaminophen 500 MG TAB PO PRN (17:13)
--- NOTE | 2019-11-10 17:47 | OP ---
DATE OF PROCEDURE: 11/10/2019 PREOPERATIVE DIAGNOSES: 1. Perirectal abscess, periprostatic abscess, small focus of prostatic abscess. 2. History of COVID-19 positive. 3. Hepatitis C positive. POSTOPERATIVE DIAGNOSES: 1. Perirectal abscess, periprostatic abscess, small focus of prostatic abscess. 2. History of COVID-19 positive. 3. Hepatitis C positive. PROCEDURES PERFORMED: 1. Cystoscopy. 2. 20-Solomon Islander 10 mL indwelling urethral Lloyd catheter placement. 3. 16-Sol[place] Islander [place] suprapubic tube placement, plugged. ANESTHESIA: General. ESTIMATED BLOOD LOSS: Minimal. INTRAOPERATIVE FINDINGS: 1. No evidence of urethral stricture. 2. Mild bilobar hyperplasia of the prostate. 3. Bladder demonstrates no evidence of bladder stone or tumor. There is reactive bullous edema of the trigone, bladder neck, consistent with the CT scan, demonstrating large perirectal, periprostatic abscess. 4. No evidence of prostatic urethral bulging, consistent with closest proximity of the prostatic urethra per se. INDICATIONS FOR PROCEDURE AND HISTORY: Mr. Bueno is a 58-year-old male who was previously in [facility] with IV antibiotics and PICC line. He was being monitored for perirectal abscess with IV antibiotics. He presents for higher level of care. A CT of the abdomen and pelvis demonstrated a large fluid collection in the prerectal perirectal space with a small focus of prostatic abscess. He has no prior history of urinary retention. He has had occasional dysuria with the presenting abscess. No history of gross hematuria. The patient presents for I and D of an abscess by General Surgery. As it is large perirectal in location, he was advised regarding intraoperative cystoscopy to rule out occult urethral stricture pathology. Of note, he had a previous indwelling urethral Lloyd catheter, which was draining uneventfully, which was placed about a month ago at a residential. Indications for suprapubic tube for ideally for urinary diversion due to pelvic abscess was discussed with him in detail and he desired to proceed. Risks and complications including injury to adjacent organs, bowel injury, and hematuria were discussed with him in detail. DESCRIPTION OF PROCEDURE: After an informed consent was signed, the patient was taken to the operating room and placed in a dorsal lithotomy position. Bilateral IVANNA hose and SCDs were placed. Broad-spectrum antibiotics were provided. A 21-Solomon Islander cystoscope was utilized for cystoscopy. There was no evidence of urethral stricture. Mild bilobar hyperplasia of the prostate was noted. There was some bullous edema of the bladder neck, trigone consistent with reactive edema from the periprostatic perirectal abscess. There was some debris within the bladder, consistent with a chronic Lloyd catheter. The UOs were difficult to identify due to reactive bullous edema. At this time, the cystoscope was utilized to distend the bladder to the level of the umbilicus. Perioperative abdominal ultrasound was performed, which demonstrated bladder distended to the level of the umbilicus with no bowel contents anterior to the bladder. Using a 16-guage [place]ot trocar, we placed a suprapubic tube. Initially, I placed a spinal needle to confirm the adequate bladder distention, which we confirmed using an 11 blade. A fascial incision was made. Unfortunately, we are out of the NephroMax balloon dilator for a suprapubic tube access for a [place] tip Lloyd catheter, I did try to dilate with a 20-Solomon Islander, however, this was suboptimal as it would not pass with a 16-Solomon Islander [place] tip catheter. Therefore, decision was made to use the [place] suprapubic tube, which was placed over the trocar. This was sutured in place with 3-0 nylon. Cystoscopy and abdominal ultrasound confirmed proper placement. A 20-Solomon Islander 10 mL indwelling urethral Lloyd catheter was then subsequently passed, as I would like the urethral Lloyd catheter to stay in situ, while General Surgery will take over the case and debride the large perirectal periprostatic abscess. See further note from General Surgery regarding I and D of the abscess. Job ID: [id number]
[2019-11-10] MEDS: Atorvastatin Calcium 10 MG TAB PO SCH (19:53)
[2019-11-10] MEDS: Ibuprofen 200 MG TAB PO PRN (19:56)
[2019-11-10] MEDS: Melatonin 3 MG TAB PO PRN (19:58)
[2019-11-10] MEDS: traMADol HCl 50 MG TAB PO PRN (23:03)
[2019-11-11] MEDS: Cefepime 2 GM in Sodium Chloride 0.9% 100 ML IVPB SCH ×2 (01:18→15:35)
[2019-11-11] MEDS: Vancomycin 1.5 GRAM/300 ML BAG 1.5 GM in Premix Bag 1 BAG IVPB SCH ×2 (05:03→18:11)
[2019-11-11] MEDS: Lactated Ringer's 1,000 ML IV SCH ×3 (05:03→23:31)
[2019-11-11] MEDS: Ibuprofen 200 MG TAB PO PRN ×2 (05:04→18:25)
[2019-11-11] MEDS: traMADol HCl 50 MG TAB PO PRN ×2 (05:05→18:26)
[2019-11-11] MEDS: HumaLOG 300 UNITS/3 ML VIAL SC PRN ×4 (05:31→20:00)
[2019-11-11 06:24] LABS: #Eosinphils 0.1 thou/uL (0.0-0.7); #Lymphocytes 0.9 thou/uL (1.20-3.40); #Monocytes 0.4 thou/uL (0.11-0.59); #Neutrophils 4.7 thou/uL (1.40-6.50); %Basophils 0.5 % (0.0-1.0); %Eosinophils 2.1 % (0.0-10.0); %Lymphocytes 14.5 % (21.0-51.0); %Neutrophils 75.9 % (42.0-75.0); Hemoglobin 9.1 g/dL (14.0-18.0); Mean Corpuscular HGB CONC 32.3 g/dL (32.0-36.0); Mean Corpuscular Hemoglobin 28.5 pg (27.0-31.0); Mean Platelet Volume 7.8 fL (7.4-10.4); Platelet Count 145 thou/uL (130-400); RBC Distribution Width 12.6 % (11.5-14.5); White Blood Cell (WBC) Count 6.2 thou/uL (4.8-10.8)
[2019-11-11 06:42] LABS: Anion Gap 13 mmol/L (10-20); BUN (Urea Nitrogen) 12 mg/dL (8.4-25.7); Calc. Creatinine Clearance 138 mL/min (70-130); Carbon Dioxide 22 mmol/L (22-29); Chloride 102 mmol/L (98-107); Estimated GFR-MDRD Greater than 90; Glucose 288 mg/dL (70-105); Potassium 4.4 mmol/L (3.5-5.1); Sodium 133 mmol/L (136-145)
--- NOTE | 2019-11-11 07:54 | PRG ---
DATE OF SERVICE: SUBJECTIVE: The patient without complaints. States that he is feeling well. OBJECTIVE: VITAL SIGNS: Stable. He is afebrile. Is and Os, 1100 from his urethral Lloyd catheter. GENERAL: The patient in no acute distress. HEART: Regular rate. LUNGS: Clear. ABDOMEN: Soft. No rigidity. No rebound. Suprapubic tube site is clean, dry, and intact with minimal discharge. GENITOURINARY: Lloyd catheter draining therese yellow urine. I removed his indwelling urethral Lloyd catheter, transitioned to suprapubic tube to gravity. LABORATORY DATA: White count 6, hemoglobin 9.1, platelet 145. Renal function stable. Creatinine of 0.8. He is COVID positive, hepatitis C positive. IMPRESSION AND PLAN: Mr. Bueno is a pleasant 58-year-old male with history of diabetes, peripheral vascular disease, COVID positive, hepatitis C positive with large perirectal pelvic abscess, small prostatic abscess. He has no prior urologic history of benign prostatic hyperplasia, obstructive urinary symptoms, nor prior urinary tract infection of concern. Postop day #1, status post cystoscopy, suprapubic tube, urinary diversion, I and D by General Surgery. His suprapubic tube is attached to gravity. He has had an indwelling urethral Lloyd catheter for months in [place] due to presenting pelvic abscess. The patient is clinically stable. I informed him that he will have a suprapubic tube for few weeks, he will require extensive wound care, wound VAC. Restaging CT if clinically indicated is indicated. Job ID: [id number] MTDD
--- NOTE | 2019-11-11 08:29 | PDOC.HOSPP ---
- Subjective Encounter Date: 11/11/19 Encounter Time: 10:40 Subjective: Patient with some pain from I&D site. No fever. No other complaints. - Objective Vital Signs & Weight: Weight Admit Weight 208 lb Weight 208 lb I&O: 11/10/19 11/11/19 11/12/19 06:59 06:59 06:59 Intake Total 3030 1500 Output Total 2850 1100 Balance 180 400 Result Diagrams: 11/11/19 06:13 11/11/19 06:13 Hospitalist ROS - Review of Systems Constitutional: denies: fever, chills Respiratory: denies: cough, shortness of breath Cardiovascular: denies: chest pain, palpitations Gastrointestinal: denies: nausea, vomiting, abdominal pain - Medication Medications: Active Medications Generic Name Dose Route Start Last Admin Trade Name Freq PRN Reason Stop Dose Admin Acetaminophen 1,000 mg 11/10/19 17:13 11/10/19 23:03 Tylenol PO 1,000 mg Q6H PRN Administration Moderate to Severe Pain (6-10) Hydrocodone Bitart/Acetaminophen 1 tab 11/09/19 11:58 11/10/19 19:56 [place] 10/325 PO 1 tab Q6H PRN Administration Pain Alprazolam 0.25 mg 11/09/19 12:46 11/10/19 23:03 Xanax PO 0.25 mg TIDPRN PRN Administration Anxiety Atorvastatin Calcium 10 mg 11/09/19 21:00 11/10/19 19:53 Lipitor PO 10 mg HS PAULA Administration Buspirone HCl 15 mg 11/09/19 21:00 11/10/19 19:53 Buspar PO 15 mg BID PAULA Administration Docusate Sodium 100 mg 11/09/19 21:00 11/10/19 19:53 Colace PO 100 mg BID PAULA Administration Famotidine 20 mg 11/08/19 21:00 11/10/19 19:53 Pepcid PO 20 mg BID PAULA Administration Gabapentin 600 mg 11/09/19 15:00 11/10/19 19:54 Neurontin PO 600 mg TID PAULA Administration Cefepime HCl 2 gm/ Sodium 100 mls @ 200 mls/hr 11/09/19 02:00 11/11/19 01:18 Chloride IVPB 100 mls 0200,1400 PAULA Administration Lactated Ringer's 1,000 mls @ 100 mls/hr 11/10/19 08:00 11/11/19 05:03 Lactated Ringer's IV 1,000 mls .Q10H PAULA Administration Vancomycin HCl 1.5 gm/ Device 300 mls @ 200 mls/hr 11/10/19 06:00 11/11/19 05 :03 IVPB 300 mls 0600,1800 PAULA Administration Insulin Glargine 10 units/ 0.1 mls @ 0 mls/hr 11/10/19 09:00 11/10/19 10:21 Miscellaneous Medication SC Not Given QAM PAULA Ibuprofen 600 mg 11/10/19 17:13 11/11/19 05:04 Motrin PO 600 mg Q6H PRN Administration Pain Insulin Human Lispro 0 units 11/08/19 18:16 11/11/19 05:31 Humalog SC 5 unit .MILD SLIDING SCALE PRN Administration Mild Correctional Scale Melatonin 3 mg 11/09/19 11:58 11/10/19 19:58 Melatonin PO 3 mg HSPRN PRN Administration Insomnia Metformin HCl 1,000 mg 11/10/19 08:00 11/10/19 18:56 Glucophage PO 1,000 mg BID-WM PAULA Administration Polyethylene Glycol 34 gm 11/09/19 21:00 11/10/19 19:54 Miralax PO 34 gm BID PAULA Administration Tamsulosin HCl 0.4 mg 11/10/19 09:00 11/10/19 08:11 Flomax PO 0.4 mg DAILY PAULA Administration Tramadol HCl 50 mg 11/10/19 17:13 11/11/19 05:05 Ultram PO 50 mg Q6H PRN Administration Pain 1-5 - Exam General Appearance: NAD, awake alert ENT: moist mucosa Heart: RRR, no murmur, no gallops, no rubs Respiratory: CTAB, no wheezes, no rales, no ronchi Gastrointestinal: soft, non-tender, non-distended, normal bowel sounds Gastrointestinal - other findings: suprapubic cath in place and clamped off Psychiatric: normal affect, normal behavior, A&O x 3 Hosp A/P (1) Pelvic fluid collection Code(s): R18.8 - OTHER ASCITES Status: Acute (2) Diabetes mellitus type 2 in nonobese Code(s): E11.9 - TYPE 2 DIABETES MELLITUS WITHOUT COMPLICATIONS Status: Chronic (3) Hyperlipidemia Code(s): E78.5 - HYPERLIPIDEMIA, UNSPECIFIED Status: Chronic (4) Peripheral neuropathy Code(s): G62.9 - POLYNEUROPATHY, UNSPECIFIED Status: Chronic (5) Anxiety Code(s): F41.9 - ANXIETY DISORDER, UNSPECIFIED Status: Acute (6) COVID-19 virus detected Code(s): U07.1 - COVID-19 Status: Acute (7) Hepatitis C Code(s): B19.20 - UNSPECIFIED VIRAL HEPATITIS C WITHOUT HEPATIC COMA Status: Chronic - Plan Perirectal and periprostatic abscess drained 11/10/2019 Cystoscopy with suprapubic catheter placed at the same time Low sodium improved Blood sugars uncontrolled, will titrate up Lantus to 15 units in AM
[2019-11-11] MEDS ORDERED: Insulin Glargine 15 UNITS in Pre-Filled Syringe 1 EACH SC SCH (09:00)
[2019-11-11] MEDS: Famotidine 20 MG TAB PO SCH ×2 (09:20→19:52)
[2019-11-11] MEDS: Polyethylene Glycol 3350 17 GM Packet PO SCH ×2 (09:20→19:51)
[2019-11-11] MEDS: busPIRone HCl 5 MG TAB PO SCH ×2 (09:20→19:52)
[2019-11-11] MEDS: metFORMIN 500 MG TAB PO SCH ×2 (09:21→18:11)
[2019-11-11] MEDS: Docusate 100 MG CAP PO SCH ×2 (09:21→19:52)
[2019-11-11] MEDS: Tamsulosin HCl 0.4 MG CAP PO SCH (09:21)
[2019-11-11] MEDS: Gabapentin 300 MG CAP PO SCH ×3 (09:21→19:51)
--- NOTE | 2019-11-11 11:13 | OP ---
DATE OF PROCEDURE: 11/10/2019 PREOPERATIVE DIAGNOSES: Perirectal abscess extending into pelvis, periprosthetic; chronic indwelling catheter; COVID positive 2 weeks ago. POSTOPERATIVE DIAGNOSES: Perirectal abscess extending into pelvis, periprosthetic; chronic indwelling catheter; COVID positive 2 weeks ago. PROCEDURE PERFORMED: Dr. Stanford first performed cystoscopy and suprapubic tube. DESCRIPTION OF PROCEDURE: The patient had already been prepared with Betadine and draped in routine fashion in the dorsal lithotomy position. Incision was made in right gluteal longitudinally over indurated area. A large perirectal abscess extending periprosthetic up into the pelvis was drained. Copious amount of purulent material, thick yellow, was drained. Culture was submitted. Wound irrigated with pulse paste mixer for 2.5 L. Hemostasis was gained with cautery. Wound Care arrived to place wound VAC. Job ID: [id number]
--- NOTE | 2019-11-11 12:01 | PRG ---
DATE OF SERVICE: 11/11/2019 SUBJECTIVE: The patient is on COVID isolation. OBJECTIVE: VITAL SIGNS: Temperature 98.3, pulse 72, respiratory rate blood pressure 115/67. LABORATORY DATA: Sodium 133, potassium 4.4, creatinine 0.8. ASSESSMENT AND PLAN: 1. Hyponatremia, better. Recommend fluid restriction. 2. . 3. Anemia of chronic disease. 4. Hypoalbuminemia. Sodium level is much better. Continue to monitor. Job ID: [id number]
[2019-11-11 17:54] LABS: Vancomycin, Trough 18.1 ug/mL
[2019-11-11] MEDS: Atorvastatin Calcium 10 MG TAB PO SCH (19:52)
[2019-11-11] MEDS: ALPRAZolam 0.25 MG TAB PO PRN (19:53)
[2019-11-11] MEDS: HYDROcodone/Acetaminophen 10/325 mg Tablet PO PRN (23:31)
[2019-11-11] MEDS: Melatonin 3 MG TAB PO PRN (23:31)
[2019-11-12 01:17] LABS: #Eosinphils 0.2 thou/uL (0.0-0.7); #Lymphocytes 0.9 thou/uL (1.20-3.40); #Monocytes 0.5 thou/uL (0.11-0.59); #Neutrophils 4.1 thou/uL (1.40-6.50); %Basophils 0.2 % (0.0-1.0); %Eosinophils 4.1 % (0.0-10.0); %Lymphocytes 15.3 % (21.0-51.0); %Monocytes 8.5 % (0.0-10.0); %Neutrophils 71.9 % (42.0-75.0); Hemoglobin 9.3 g/dL (14.0-18.0); Mean Corpuscular HGB CONC 32.9 g/dL (32.0-36.0); Mean Corpuscular Volume 88.1 fL (78.0-98.0); Mean Platelet Volume 8.1 fL (7.4-10.4); Platelet Count 147 thou/uL (130-400); RBC Distribution Width 12.8 % (11.5-14.5); Red Blood Cell (RBC) Count 3.19 mill/uL (4.70-6.10); White Blood Cell (WBC) Count 5.7 thou/uL (4.8-10.8)
[2019-11-12] MEDS ORDERED: Sodium Chloride 0.9% 250 ML IV SCH (01:30)
[2019-11-12 01:31] LABS: Anion Gap 12 mmol/L (10-20); BUN (Urea Nitrogen) 13 mg/dL (8.4-25.7); Calc. Creatinine Clearance 153 mL/min (70-130); Calcium 8.3 mg/dL (7.8-10.44); Carbon Dioxide 24 mmol/L (22-29); Chloride 102 mmol/L (98-107); Estimated GFR-MDRD Greater than 90; Glucose 220 mg/dL (70-105); Potassium 4.5 mmol/L (3.5-5.1); Sodium 133 mmol/L (136-145)
[2019-11-12] MEDS: Cefepime 2 GM in Sodium Chloride 0.9% 100 ML IVPB SCH ×2 (02:15→14:01)
[2019-11-12] MEDS: Vancomycin 1.5 GRAM/300 ML BAG 1.5 GM in Premix Bag 1 BAG IVPB SCH ×2 (05:19→17:30)
[2019-11-12] MEDS: Ibuprofen 200 MG TAB PO PRN (05:21)
[2019-11-12] MEDS: HumaLOG 300 UNITS/3 ML VIAL SC PRN ×4 (05:53→21:06)
--- NOTE | 2019-11-12 07:31 | PDOC.HOSPP ---
- Subjective Encounter Date: 11/12/19 Encounter Time: 10:50 Subjective: Patient reports pain under ok control, not as good as when on the toradol. No new complaints. - Objective Vital Signs & Weight: Vital Signs (12 hours) Temp Pulse Resp BP Pulse Ox 11/12/19 05:21 97.8 F 55 L 18 112/75 95 11/12/19 02:29 55 L 105/67 11/12/19 01:06 101/58 L 11/12/19 00:35 52 L 102/63 11/11/19 23:54 98.3 F 57 L 18 113/62 18 L 11/11/19 20:00 99 11/11/19 19:52 98.3 F 66 18 125/78 96 Weight Admit Weight 208 lb Weight 208 lb I&O: 11/11/19 11/12/19 11/13/19 06:59 06:59 06:59 Intake Total 1500 2400 Output Total 1100 2950 Balance 400 -550 Result Diagrams: 11/12/19 01:06 11/12/19 01:06 Additional Labs: Accuchecks 11/12/19 11/12/19 11/11/19 05:27 01:05 20:03 POC Glucose 220 H 248 H 291 H 11/11/19 11/11/19 11/10/19 10:52 05:17 20:05 POC Glucose 358 H 334 H 330 H 11/10/19 11/10/19 11/10/19 17:44 13:01 05:47 POC Glucose 208 H 215 H 259 H 11/09/19 20:10 POC Glucose 309 H Hospitalist ROS - Review of Systems Constitutional: denies: fever, chills Respiratory: denies: cough, shortness of breath Cardiovascular: denies: chest pain, palpitations Gastrointestinal: denies: nausea, vomiting, abdominal pain - Medication Medications: Active Medications Generic Name Dose Route Start Last Admin Trade Name Freq PRN Reason Stop Dose Admin Acetaminophen 1,000 mg 11/10/19 17:13 11/10/19 23:03 Tylenol PO 1,000 mg Q6H PRN Administration Moderate to Severe Pain (6-10) Hydrocodone Bitart/Acetaminophen 1 tab 11/09/19 11:58 11/11/19 23:31 [place] 10/325 PO 1 tab Q6H PRN Administration Moderate Pain (4-6) Alprazolam 0.25 mg 11/09/19 12:46 11/11/19 19:53 Xanax PO 0.25 mg TIDPRN PRN Administration Anxiety Atorvastatin Calcium 10 mg 11/09/19 21:00 11/11/19 19:52 Lipitor PO 10 mg HS PAULA Administration Buspirone HCl 15 mg 11/09/19 21:00 11/11/19 19:52 Buspar PO 15 mg BID PAULA Administration Docusate Sodium 100 mg 11/09/19 21:00 11/11/19 19:52 Colace PO 100 mg BID PAULA Administration Famotidine 20 mg 11/08/19 21:00 11/11/19 19:52 Pepcid PO 20 mg BID PAULA Administration Gabapentin 600 mg 11/09/19 15:00 11/11/19 19:51 Neurontin PO 600 mg TID PAULA Administration Cefepime HCl 2 gm/ Sodium 100 mls @ 200 mls/hr 11/09/19 02:00 11/12/19 02:15 Chloride IVPB 100 mls 0200,1400 PAULA Administration Lactated Ringer's 1,000 mls @ 100 mls/hr 11/10/19 08:00 11/11/19 23:31 Lactated Ringer's IV 1,000 mls .Q10H PAULA Administration Vancomycin HCl 1.5 gm/ Device 300 mls @ 200 mls/hr 11/10/19 06:00 11/12/19 05 :19 IVPB 300 mls 0600,1800 PAULA Administration Ibuprofen 600 mg 11/10/19 17:13 11/12/19 05:21 Motrin PO 600 mg Q6H PRN Administration Pain Insulin Human Lispro 0 units 11/08/19 18:16 11/12/19 05:53 Humalog SC 3 unit .MILD SLIDING SCALE PRN Administration Mild Correctional Scale Melatonin 3 mg 11/09/19 11:58 11/11/19 23:31 Melatonin PO 3 mg HSPRN PRN Administration Insomnia Metformin HCl 1,000 mg 11/10/19 08:00 11/11/19 18:11 Glucophage PO 1,000 mg BID-WM PAULA Administration Polyethylene Glycol 34 gm 11/09/19 21:00 11/11/19 19:51 Miralax PO 34 gm BID PAULA Administration Tamsulosin HCl 0.4 mg 11/10/19 09:00 11/11/19 09:21 Flomax PO 0.4 mg DAILY PAULA Administration - Exam General Appearance: NAD, awake alert ENT: moist mucosa Heart: RRR, no murmur, no gallops, no rubs Respiratory: CTAB, no wheezes, no rales, no ronchi Gastrointestinal: soft, non-tender, non-distended, normal bowel sounds Psychiatric: normal affect, normal behavior, A&O x 3 Hosp A/P (1) Pelvic fluid collection Code(s): R18.8 - OTHER ASCITES Status: Acute (2) Diabetes mellitus type 2 in nonobese Code(s): E11.9 - TYPE 2 DIABETES MELLITUS WITHOUT COMPLICATIONS Status: Chronic (3) Hyperlipidemia Code(s): E78.5 - HYPERLIPIDEMIA, UNSPECIFIED Status: Chronic (4) Peripheral neuropathy Code(s): G62.9 - POLYNEUROPATHY, UNSPECIFIED Status: Chronic (5) Anxiety Code(s): F41.9 - ANXIETY DISORDER, UNSPECIFIED Status: Acute (6) COVID-19 virus detected Code(s): U07.1 - COVID-19 Status: Acute (7) Hepatitis C Code(s): B19.20 - UNSPECIFIED VIRAL HEPATITIS C WITHOUT HEPATIC COMA Status: Chronic - Plan Perirectal and periprostatic abscess drained 11/10/2019, culture growing back staph Cystoscopy with suprapubic catheter placed at the same time Low sodium improved Blood sugars uncontrolled, will titrate up Lantus to 25 units in AM
[2019-11-12] MEDS: Gabapentin 300 MG CAP PO SCH ×3 (08:08→20:44)
[2019-11-12] MEDS: Famotidine 20 MG TAB PO SCH ×2 (08:09→20:45)
[2019-11-12] MEDS: Tamsulosin HCl 0.4 MG CAP PO SCH (08:09)
[2019-11-12] MEDS: metFORMIN 500 MG TAB PO SCH ×2 (08:09→16:28)
[2019-11-12] MEDS: busPIRone HCl 5 MG TAB PO SCH ×2 (08:09→20:45)
[2019-11-12] MEDS: Docusate 100 MG CAP PO SCH ×2 (08:10→20:45)
[2019-11-12] MEDS: Polyethylene Glycol 3350 17 GM Packet PO SCH ×2 (08:11→20:45)
[2019-11-12] MEDS: HYDROcodone/Acetaminophen 10/325 mg Tablet PO PRN (08:35)
--- NOTE | 2019-11-12 08:38 | PRG ---
DATE OF SERVICE: 11/12/2019 SUBJECTIVE: The patient without complaints, resting comfortably. OBJECTIVE: VITAL SIGNS: Stable. He is afebrile. 2300 of urine output from his suprapubic tube. GENERAL: The patient is in no acute distress. HEART: Regular rate. LUNGS: Clear. ABDOMEN: Soft. Suprapubic tube site is clean, dry, and intact. No rigidity. No rebound. : Meatus is grossly unremarkable. No evidence of scrotal cellulitis, edema, or perineal fluctuation of concern. LABORATORY DATA: White count is 5, hemoglobin 9.3, and platelets 127. Renal function stable. Creatinine 0.72. IMPRESSION AND PLAN: Mr. Bueno is a 58-year-old male with history of COVID positive, hepatitis C, with history of large perirectal, prerectal, periprostatic abscess, with focus of small 2 cm prostatic abscess. He is postop day #2 status post I and D by General Surgery, postop day #2 status post cysto, suprapubic tube by . His urethral Lloyd catheter has been removed. SP tube to gravity. small focused prostatic abscess, expect this to resolve with antibiotic therapy as his dominant abscess has been drained by General Surgery. Continue wound care, SP tube for urinary diversion. Cultures pending. Infectious Disease following regarding antibiotic regimen. Primary wound management by General Surgery. Dr. Jacinto is covering me this weekend, for PRN issues patient stable, with urinary diversion and wound care. Job ID: [id number] MTDD
[2019-11-12] MEDS: Lactated Ringer's 1,000 ML IV SCH ×2 (09:12→16:28)
[2019-11-12] MEDS: Insulin Glargine 25 UNITS in Pre-Filled Syringe 1 EACH SC SCH (10:46)
[2019-11-12] MEDS ORDERED: Cepastat Lozenges 1 LOZ PO PRN (11:16)
--- NOTE | 2019-11-12 12:02 | PRG ---
DATE OF SERVICE: SUBJECTIVE: The patient is on COVID isolation. OBJECTIVE: VITAL SIGNS: Temperature 97.6, pulse 60, respiratory rate 18, and blood pressure 131/71. LABORATORY DATA: Sodium is 133, creatinine is 0.7. ASSESSMENT AND PLAN: 1. Hyponatremia, better. Recommend fluid restriction. 2. Anemia of chronic disease. 3. Hypoalbuminemia. 4. History of hypertension. Sodium level is back to baseline. Monitor. We will sign off. Please call back with any questions. Job ID: [id number]
[2019-11-12] MEDS: traMADol HCl 50 MG TAB PO PRN (13:15)
--- NOTE | 2019-11-12 18:17 | PRG ---
DATE OF SERVICE: Lew Bueno is doing well after placement of suprapubic catheter and drainage of a large perirectal abscess extending to periprostatic into the pelvis. Cultures reveal MRSA. Patient's white count is 5, hemoglobin 9.3; basic metabolic profile is normal. He has a PICC line in place, receiving intravenous antibiotics. His diet is regular. He reports he feels much better, although having some pain. We will order parenteral analgesics for wound care VAC changes. Patient is ready to be discharged for outpatient wound VAC care and IV antibiotics when such arrangements are made. I will see him next week. Wound Care reports the wound looks good and he tolerated the dressing change fairly well. Job ID: [id number]
[2019-11-12] MEDS: Melatonin 3 MG TAB PO PRN (20:44)
[2019-11-12] MEDS: ALPRAZolam 0.25 MG TAB PO PRN (20:44)
[2019-11-12] MEDS: Atorvastatin Calcium 10 MG TAB PO SCH (20:44)
[2019-11-13] MEDS: Cefepime 2 GM in Sodium Chloride 0.9% 100 ML IVPB SCH ×2 (01:33→16:09)
[2019-11-13] MEDS: traMADol HCl 50 MG TAB PO PRN (02:38)
[2019-11-13] MEDS: Lactated Ringer's 1,000 ML IV SCH ×2 (05:40→16:09)
[2019-11-13] MEDS: Vancomycin 1.5 GRAM/300 ML BAG 1.5 GM in Premix Bag 1 BAG IVPB SCH ×2 (05:40→17:45)
[2019-11-13] MEDS: HumaLOG 300 UNITS/3 ML VIAL SC PRN ×3 (05:54→16:57)
[2019-11-13] MEDS: Insulin Glargine 25 UNITS in Pre-Filled Syringe 1 EACH SC SCH (08:21)
[2019-11-13] MEDS: Gabapentin 300 MG CAP PO SCH ×3 (08:21→20:59)
[2019-11-13] MEDS: busPIRone HCl 5 MG TAB PO SCH ×2 (08:21→20:58)
[2019-11-13] MEDS: Tamsulosin HCl 0.4 MG CAP PO SCH (08:22)
[2019-11-13] MEDS: Docusate 100 MG CAP PO SCH ×2 (08:22→20:58)
[2019-11-13] MEDS: Famotidine 20 MG TAB PO SCH ×2 (08:22→20:59)
[2019-11-13] MEDS: Polyethylene Glycol 3350 17 GM Packet PO SCH ×2 (08:22→20:59)
[2019-11-13] MEDS: metFORMIN 500 MG TAB PO SCH ×2 (08:22→16:09)
[2019-11-13 11:15] LABS: HCV log10 6.565 (.); Hep C PCR-Quant 3670000 IU/mL (.)
--- NOTE | 2019-11-13 18:00 | PDOC.HOSPP ---
- Subjective Encounter Date: 11/13/19 Encounter Time: 11:30 Subjective: pt seen and examined, says lots o diarrhea, check w.. RN -- not watery or fowl smell, it is a loose stool. - Objective Vital Signs & Weight: Vital Signs (12 hours) Temp Pulse Resp BP Pulse Ox 11/13/19 09:00 95 11/13/19 08:39 97.7 F 63 18 116/70 95 Weight Admit Weight 208 lb Weight 208 lb I&O: 11/12/19 11/13/19 11/14/19 06:59 06:59 06:59 Intake Total 2400 1800 Output Total 2950 4295 Balance -101 -9491 Result Diagrams: 11/12/19 01:06 11/12/19 01:06 Additional Labs: Accuchecks 11/13/19 11/13/19 11/13/19 16:22 11:55 05:52 POC Glucose 177 H 261 H 197 H 11/12/19 20:53 POC Glucose 220 H Hospitalist ROS - Medication Medications: Active Medications Generic Name Dose Route Start Last Admin Trade Name Freq PRN Reason Stop Dose Admin Acetaminophen 1,000 mg 11/10/19 17:13 11/10/19 23:03 Tylenol PO 1,000 mg Q6H PRN Administration Moderate to Severe Pain (6-10) Hydrocodone Bitart/Acetaminophen 1 tab 11/09/19 11:58 11/12/19 08:35 [place] 10/325 PO 1 tab Q6H PRN Administration Moderate Pain (4-6) Alprazolam 0.25 mg 11/09/19 12:46 11/12/19 20:44 Xanax PO 0.25 mg TIDPRN PRN Administration Anxiety Atorvastatin Calcium 10 mg 11/09/19 21:00 11/12/19 20:44 Lipitor PO 10 mg HS PAULA Administration Buspirone HCl 15 mg 11/09/19 21:00 11/13/19 08:21 Buspar PO 15 mg BID PAULA Administration Docusate Sodium 100 mg 11/09/19 21:00 11/13/19 08:22 Colace PO Not Given BID PAULA Famotidine 20 mg 11/08/19 21:00 11/13/19 08:22 Pepcid PO 20 mg BID PAULA Administration Gabapentin 600 mg 11/09/19 15:00 11/13/19 16:09 Neurontin PO 600 mg TID PAULA Administration Cefepime HCl 2 gm/ Sodium 100 mls @ 200 mls/hr 11/09/19 02:00 11/13/19 16:09 Chloride IVPB 100 mls 0200,1400 PAULA Administration Lactated Ringer's 1,000 mls @ 100 mls/hr 11/10/19 08:00 11/13/19 16:09 Lactated Ringer's IV 1,000 mls .Q10H PAULA Administration Vancomycin HCl 1.5 gm/ Device 300 mls @ 200 mls/hr 11/10/19 06:00 11/13/19 17 :45 IVPB 300 mls 0600,1800 PAULA Administration Insulin Glargine 25 units/ 0.25 mls @ 0 mls/hr 11/12/19 09:00 11/13/19 08:21 Miscellaneous Medication SC 0.25 mls QAM PAULA Administration Ibuprofen 600 mg 11/10/19 17:13 11/12/19 05:21 Motrin PO 600 mg Q6H PRN Administration Pain Insulin Human Lispro 0 units 11/08/19 18:16 11/13/19 16:57 Humalog SC 2 unit .MILD SLIDING SCALE PRN Administration Mild Correctional Scale Insulin Human Lispro 0 units 11/12/19 01:21 11/12/19 21:06 Humalog SC 2 units .BEDTIME SLIDING SC PRN Administration Bedtime Correctional Scale Melatonin 3 mg 11/09/19 11:58 11/12/19 20:44 Melatonin PO 3 mg HSPRN PRN Administration Insomnia Metformin HCl 1,000 mg 11/10/19 08:00 11/13/19 16:09 Glucophage PO 1,000 mg BID-WM PAULA Administration Polyethylene Glycol 34 gm 11/09/19 21:00 11/13/19 08:22 Miralax PO Not Given BID PAULA Tamsulosin HCl 0.4 mg 11/10/19 09:00 11/13/19 08:22 Flomax PO 0.4 mg DAILY PAULA Administration Throat Lozenges 1 aron 11/12/19 11:16 11/12/19 14:28 Cepastat Lozenges PO 1 aron Q2H PRN Administration Sore Throat Tramadol HCl 100 mg 11/11/19 11:18 11/13/19 02:38 Ultram PO 100 mg Q6H PRN Administration Severe Pain (7-10) - Exam General Appearance: awake alert Eye: PERRL ENT: normocephalic atraumatic Neck: supple Hosp A/P - Plan (1) Pelvic fluid collection Code(s): R18.8 - OTHER ASCITES Status: Acute Perirectal and periprostatic abscess drained 11/10/2019, culture growing back staph Cystoscopy with suprapubic catheter placed at the same time - on vanc and cefepime (2) Diabetes mellitus type 2 in nonobese Code(s): E11.9 - TYPE 2 DIABETES MELLITUS WITHOUT COMPLICATIONS Status: Chronic -Lantus to 25 units in AM -sahra shari MRSA of 11/09 (3) Hyperlipidemia Code(s): E78.5 - HYPERLIPIDEMIA, UNSPECIFIED Status: Chronic (4) Peripheral neuropathy Code(s): G62.9 - POLYNEUROPATHY, UNSPECIFIED Status: Chronic (5) Anxiety Code(s): F41.9 - ANXIETY DISORDER, UNSPECIFIED Status: Acute (6) COVID-19 virus detected Code(s): U07.1 - COVID-19 Status: Acute (7) Hepatitis C Code(s): B19.20 - UNSPECIFIED VIRAL HEPATITIS C WITHOUT HEPATIC COMA Status: Chronic - Plan covid detected in november 08 - pt anxious to know when he can retest and when it would be negative. - --- pt also from [facility], wondering how he is going to get htere. Palliative care following -will check with them tomorrow and find the latest family's plan regarding her transfer.
[2019-11-13] MEDS: Atorvastatin Calcium 10 MG TAB PO SCH (20:58)
[2019-11-13] MEDS: Melatonin 3 MG TAB PO PRN (20:59)
[2019-11-13] MEDS: Ibuprofen 200 MG TAB PO PRN (20:59)
[2019-11-13] MEDS: ALPRAZolam 0.25 MG TAB PO PRN (20:59)
[2019-11-14] MEDS: Cefepime 2 GM in Sodium Chloride 0.9% 100 ML IVPB SCH ×2 (01:59→13:28)
[2019-11-14] MEDS: Lactated Ringer's 1,000 ML IV SCH ×3 (02:00→20:50)
[2019-11-14] MEDS: traMADol HCl 50 MG TAB PO PRN ×3 (03:02→20:48)
[2019-11-14] MEDS ORDERED: Phenazopyridine HCl 97.5 MG TABLET PO SCH (04:00)
[2019-11-14] MEDS ORDERED: ALPRAZolam 0.25 MG TAB PO SCH (04:15)
[2019-11-14] MEDS: Vancomycin 1.5 GRAM/300 ML BAG 1.5 GM in Premix Bag 1 BAG IVPB SCH ×2 (05:29→17:38)
[2019-11-14 06:59] LABS: #Eosinphils 0.1 thou/uL (0.0-0.7); #Lymphocytes 0.9 thou/uL (1.20-3.40); #Monocytes 0.3 thou/uL (0.11-0.59); #Neutrophils 2.9 thou/uL (1.40-6.50); %Basophils 0.5 % (0.0-1.0); %Eosinophils 3.4 % (0.0-10.0); %Lymphocytes 21.4 % (21.0-51.0); %Monocytes 6.7 % (0.0-10.0); %Neutrophils 68.1 % (42.0-75.0); Hemoglobin 9.3 g/dL (14.0-18.0); Mean Corpuscular HGB CONC 34.7 g/dL (32.0-36.0); Mean Corpuscular Hemoglobin 30.1 pg (27.0-31.0); Mean Platelet Volume 7.6 fL (7.4-10.4); Platelet Count 144 thou/uL (130-400); RBC Distribution Width 12.8 % (11.5-14.5); Red Blood Cell (RBC) Count 3.08 mill/uL (4.70-6.10); White Blood Cell (WBC) Count 4.3 thou/uL (4.8-10.8)
[2019-11-14 07:18] LABS: Anion Gap 9 mmol/L (10-20); BUN (Urea Nitrogen) 15 mg/dL (8.4-25.7); Calc. Creatinine Clearance 160 mL/min (70-130); Calcium 8.5 mg/dL (7.8-10.44); Carbon Dioxide 28 mmol/L (22-29); Chloride 102 mmol/L (98-107); Estimated GFR-MDRD Greater than 90; Glucose 159 mg/dL (70-105); Potassium 4.2 mmol/L (3.5-5.1); Sodium 135 mmol/L (136-145)
[2019-11-14] MEDS: Insulin Glargine 25 UNITS in Pre-Filled Syringe 1 EACH SC SCH (08:06)
[2019-11-14] MEDS: busPIRone HCl 5 MG TAB PO SCH ×2 (08:09→20:46)
[2019-11-14] MEDS: metFORMIN 500 MG TAB PO SCH ×2 (08:10→17:23)
[2019-11-14] MEDS: Gabapentin 300 MG CAP PO SCH ×3 (08:10→20:47)
[2019-11-14] MEDS: Tamsulosin HCl 0.4 MG CAP PO SCH (08:10)
[2019-11-14] MEDS: Docusate 100 MG CAP PO SCH ×2 (08:22→21:07)
[2019-11-14] MEDS: Polyethylene Glycol 3350 17 GM Packet PO SCH ×2 (08:22→21:06)
[2019-11-14] MEDS: Famotidine 20 MG TAB PO SCH ×2 (09:01→20:46)
--- NOTE | 2019-11-14 11:31 | PDOC.HOSPP ---
- Subjective Encounter Date: 11/14/19 Encounter Time: 11:40 Subjective: pt sleeping soundly, not able to wake him up in COVID room, called few times his phone as well. morejon - more hematuria type color . BG and BP good. - Objective Vital Signs & Weight: Vital Signs (12 hours) Temp Pulse Resp BP Pulse Ox 11/14/19 08:27 97.7 F 63 18 131/73 95 11/14/19 08:00 95 Weight Admit Weight 208 lb Weight 208 lb I&O: 11/13/19 11/14/19 11/15/19 06:59 06:59 06:59 Intake Total 1800 2000 Output Total 4278 5762 Balance -8837 -782 Result Diagrams: 11/14/19 05:59 11/14/19 05:59 Additional Labs: Accuchecks 11/14/19 11/13/19 11/13/19 06:48 21:09 16:22 POC Glucose 166 H 176 H 177 H 11/13/19 11:55 POC Glucose 261 H Hospitalist ROS - Medication Medications: Active Medications Generic Name Dose Route Start Last Admin Trade Name Freq PRN Reason Stop Dose Admin Acetaminophen 1,000 mg 11/10/19 17:13 11/10/19 23:03 Tylenol PO 1,000 mg Q6H PRN Administration Moderate to Severe Pain (6-10) Hydrocodone Bitart/Acetaminophen 1 tab 11/09/19 11:58 11/12/19 08:35 [place] 10/325 PO 1 tab Q6H PRN Administration Moderate Pain (4-6) Alprazolam 0.25 mg 11/09/19 12:46 11/13/19 20:59 Xanax PO 0.25 mg TIDPRN PRN Administration Anxiety Atorvastatin Calcium 10 mg 11/09/19 21:00 11/13/19 20:58 Lipitor PO 10 mg HS PAULA Administration Buspirone HCl 15 mg 11/09/19 21:00 11/14/19 08:09 Buspar PO 15 mg BID PAULA Administration Docusate Sodium 100 mg 11/09/19 21:00 11/14/19 08:22 Colace PO Not Given BID PAULA Famotidine 20 mg 11/08/19 21:00 11/14/19 09:01 Pepcid PO 20 mg BID PAULA Administration Gabapentin 600 mg 11/09/19 15:00 11/14/19 08:10 Neurontin PO 600 mg TID PAULA Administration Cefepime HCl 2 gm/ Sodium 100 mls @ 200 mls/hr 11/09/19 02:00 11/14/19 01:59 Chloride IVPB 100 mls 0200,1400 PAULA Administration Lactated Ringer's 1,000 mls @ 100 mls/hr 11/10/19 08:00 11/14/19 05:56 Lactated Ringer's IV 1,000 mls .Q10H PAULA Administration Vancomycin HCl 1.5 gm/ Device 300 mls @ 200 mls/hr 11/10/19 06:00 11/14/19 05 :29 IVPB 300 mls 0600,1800 PAULA Administration Insulin Glargine 25 units/ 0.25 mls @ 0 mls/hr 11/12/19 09:00 11/14/19 08:06 Miscellaneous Medication SC 0.25 mls QAM PAULA Administration Ibuprofen 600 mg 11/10/19 17:13 11/13/19 20:59 Motrin PO 600 mg Q6H PRN Administration Pain Insulin Human Lispro 0 units 11/08/19 18:16 11/13/19 16:57 Humalog SC 2 unit .MILD SLIDING SCALE PRN Administration Mild Correctional Scale Insulin Human Lispro 0 units 11/12/19 01:21 11/12/19 21:06 Humalog SC 2 units .BEDTIME SLIDING SC PRN Administration Bedtime Correctional Scale Melatonin 3 mg 11/09/19 11:58 11/13/19 20:59 Melatonin PO 3 mg HSPRN PRN Administration Insomnia Metformin HCl 1,000 mg 11/10/19 08:00 11/14/19 08:10 Glucophage PO 1,000 mg BID-WM PAULA Administration Polyethylene Glycol 34 gm 11/09/19 21:00 11/14/19 08:22 Miralax PO Not Given BID PAULA Tamsulosin HCl 0.4 mg 11/10/19 09:00 11/14/19 08:10 Flomax PO 0.4 mg DAILY PAULA Administration Throat Lozenges 1 aron 11/12/19 11:16 11/12/19 14:28 Cepastat Lozenges PO 1 aron Q2H PRN Administration Sore Throat Tramadol HCl 100 mg 11/11/19 11:18 11/14/19 03:02 Ultram PO 100 mg Q6H PRN Administration Severe Pain (7-10) - Exam General - other findings: sleeping ENT: normocephalic atraumatic Neck: supple Hosp A/P - Plan (1) Pelvic fluid collection Code(s): R18.8 - OTHER ASCITES Status: Acute Perirectal and periprostatic abscess drained 11/10/2019, culture growing back staph Cystoscopy with suprapubic catheter placed at the same time - on vanc and cefepime -sahra shari MRSA of 11/09 (2) Diabetes mellitus type 2 in nonobese Code(s): E11.9 - TYPE 2 DIABETES MELLITUS WITHOUT COMPLICATIONS Status: Chronic -Lantus to 25 units in AM (3) Hyperlipidemia Code(s): E78.5 - HYPERLIPIDEMIA, UNSPECIFIED Status: Chronic (4) Peripheral neuropathy Code(s): G62.9 - POLYNEUROPATHY, UNSPECIFIED Status: Chronic (5) Anxiety Code(s): F41.9 - ANXIETY DISORDER, UNSPECIFIED Status: Acute (6) COVID-19 virus detected Code(s): U07.1 - COVID-19 Status: Acute (7) Hepatitis C Code(s): B19.20 - UNSPECIFIED VIRAL HEPATITIS C WITHOUT HEPATIC COMA Status: Chronic - Plan covid detected in november 08 - pt anxious to know when he can retest and when it would be negative. - --- pt also from [facility], wondering how he is going to get there. to do Need to address how long he needs to have suprapubic catheter and needs follow up - on vanc and cefepime -sahra shari MRSA of 11/09 -have to transition to PO abx. prior to dc. --bactrim? Palliative care following -will check with them tomorrow and find the latest family's plan regarding her transfer.
[2019-11-14] MEDS: HumaLOG 300 UNITS/3 ML VIAL SC PRN ×3 (12:45→21:14)
--- NOTE | 2019-11-14 16:09 | PRG ---
DATE OF SERVICE: 11/14/2019 SUBJECTIVE: Mr. Beuno had the surgical intervention. We have an operative note from Dr. Galvan, which was reviewed. The patient had first cystoscopy and suprapubic tube placement by Dr. Stanford. Incision made in the right gluteal over indurated area. A large perirectal abscess extending in the periprostatic area into the pelvis was drained. The patient is currently complaining of pain in the suprapubic tube area. He feels like there is some urine coming out of the urethra as well. He is having pasty bowel movements. No respiratory symptoms. No abdominal pain otherwise. OBJECTIVE: VITAL SIGNS: He has been afebrile. BP 130/70, pulse is 63. GENERAL: Chronically ill appearing, in no acute distress. LUNGS: Symmetric, clear breath sounds. HEART: S1 and S2, regular rate. ABDOMEN: Soft. Suprapubic catheter in place with light yellow urine output. The area of the abscess is drained and packed. LABORATORY DATA: White cell count is at 4.3, hemoglobin 9.3, platelets 144, with normal differential. Creatinine 0.69. Serology with a positive hepatitis C antibody and Reflex to HCV RNA Ultra Quant was positive. HIV was nonreactive. Microbiology with MRSA. The susceptibilities of MRSA showed a quinolone susceptibility as well as linezolid, ofloxacin, and rifampin. He also had an anaerobic gram-negative alexi identified in the sample. The patient is currently on cefepime and vancomycin. We will go ahead and switch him to vancomycin and Flagyl or vancomycin and Zosyn. The COVID infection seems to be mild. He does not have major repercussions in his respiratory tract thus far. He will need eventual treatment for hepatitis C in the outpatient setting. We will continue vancomycin and Zosyn for now. Job ID: [id number]
[2019-11-14] MEDS: HYDROcodone/Acetaminophen 10/325 mg Tablet PO PRN (17:23)
[2019-11-14] MEDS: metroNIDAZOLE 500 MG TAB PO SCH (20:47)
[2019-11-14] MEDS: Atorvastatin Calcium 10 MG TAB PO SCH (20:47)
[2019-11-14] MEDS: ALPRAZolam 0.25 MG TAB PO PRN (20:48)
[2019-11-15] MEDS: Vancomycin 1.5 GRAM/300 ML BAG 1.5 GM in Premix Bag 1 BAG IVPB SCH ×2 (05:26→17:22)
[2019-11-15] MEDS: HumaLOG 300 UNITS/3 ML VIAL SC PRN ×4 (05:30→20:50)
[2019-11-15 05:53] LABS: #Eosinphils 0.2 thou/uL (0.0-0.7); #Lymphocytes 0.8 thou/uL (1.20-3.40); #Monocytes 0.4 thou/uL (0.11-0.59); #Neutrophils 2.8 thou/uL (1.40-6.50); %Basophils 0.3 % (0.0-1.0); %Eosinophils 3.8 % (0.0-10.0); %Monocytes 8.4 % (0.0-10.0); %Neutrophils 68.6 % (42.0-75.0); Hemoglobin 9.6 g/dL (14.0-18.0); Mean Corpuscular HGB CONC 32.3 g/dL (32.0-36.0); Mean Corpuscular Hemoglobin 28.3 pg (27.0-31.0); Mean Corpuscular Volume 87.7 fL (78.0-98.0); Mean Platelet Volume 7.6 fL (7.4-10.4); Platelet Count 146 thou/uL (130-400); RBC Distribution Width 13.2 % (11.5-14.5); Red Blood Cell (RBC) Count 3.38 mill/uL (4.70-6.10); White Blood Cell (WBC) Count 4.1 thou/uL (4.8-10.8)
[2019-11-15] MEDS: HYDROcodone/Acetaminophen 10/325 mg Tablet PO PRN ×2 (06:00→12:09)
[2019-11-15 06:03] LABS: Anion Gap 8 mmol/L (10-20); BUN (Urea Nitrogen) 19 mg/dL (8.4-25.7); Calc. Creatinine Clearance 147 mL/min (70-130); Calcium 8.5 mg/dL (7.8-10.44); Carbon Dioxide 29 mmol/L (22-29); Chloride 99 mmol/L (98-107); Estimated GFR-MDRD Greater than 90; Glucose 232 mg/dL (70-105); Potassium 4.3 mmol/L (3.5-5.1); Sodium 132 mmol/L (136-145)
[2019-11-15] MEDS: Lactated Ringer's 1,000 ML IV SCH ×2 (06:15→17:25)
--- NOTE | 2019-11-15 08:22 | PRG ---
DATE OF SERVICE: 11/15/2019 SUBJECTIVE: The patient resting comfortably, easily arousable. OBJECTIVE: VITAL SIGNS: Stable. He is afebrile. I's and O's, urine output 5400 through the SP tube. GENERAL: The patient in no acute distress. HEART: Regular rate. LUNGS: Clear. ABDOMEN: Soft. No rigidity. No rebound. Suprapubic tube site is clean, dry, and intact. Urine output clear with some sediment. PERTINENT LABORATORY DATA: White count 4, hemoglobin 9.6, platelet 147. Creatinine 0.75. Culture of the wound demonstrates MRSA and anaerobes, currently on Zosyn and vancomycin per Dr. Sullivan. IMPRESSION AND PLAN: 1. Mr. Bueno is a 58-year-old male, COVID positive. 2. Hepatitis C. 3. Large perirectal/periprostatic abscess, status post I and D by General Surgery. Suprapubic tube diversion by Urology, postop day #5. He remains afebrile, clinically stable. Continue wound VAC. Recommend ongoing suprapubic tube, urinary diversion for presenting pelvic abscess. IV antibiotic therapy will be dictated by Infectious Disease. will consider staging CT if fever or leukocytosis, unclear regarding his disposition as he does not reside locally. Job ID: [id number] [facility]
[2019-11-15] MEDS: Famotidine 20 MG TAB PO SCH ×2 (08:54→20:38)
[2019-11-15] MEDS: metroNIDAZOLE 500 MG TAB PO SCH ×3 (08:54→20:39)
[2019-11-15] MEDS: Insulin Glargine 25 UNITS in Pre-Filled Syringe 1 EACH SC SCH (08:54)
[2019-11-15] MEDS: Gabapentin 300 MG CAP PO SCH ×3 (08:57→20:39)
[2019-11-15] MEDS: Tamsulosin HCl 0.4 MG CAP PO SCH (08:57)
[2019-11-15] MEDS: Docusate 100 MG CAP PO SCH ×2 (08:59→20:39)
[2019-11-15] MEDS: metFORMIN 500 MG TAB PO SCH ×2 (08:59→17:26)
[2019-11-15] MEDS: busPIRone HCl 5 MG TAB PO SCH ×2 (08:59→20:38)
[2019-11-15] MEDS: ALPRAZolam 0.25 MG TAB PO PRN ×2 (08:59→20:40)
[2019-11-15] MEDS: traMADol HCl 50 MG TAB PO PRN (09:00)
[2019-11-15] MEDS: Polyethylene Glycol 3350 17 GM Packet PO SCH ×2 (09:15→20:39)
--- NOTE | 2019-11-15 12:50 | PDOC.HOSPP ---
- Subjective Encounter Date: 11/15/19 Encounter Time: 11:00 Subjective: Seth is seen today wound care is planning to address the wound VAC. He received the pain medication. He says that he still has ongoing loose stool. I also talked to Dr. Ranjit Latif for the duration of the IV antibiotics which has been switched to Zosyn and continue with the vancomycin. Probably 2 to 3 weeks. I also reviewed the urologist note, continue with the suprapubic tube diversion until seen in the outpatient clinic. Active hepatitis C infection will be followed in the outpatient clinic. I talked to Dr. Guicho Aleman and they will follow up in the outpatient clinic. - Objective Vital Signs & Weight: Vital Signs (12 hours) Temp Pulse Resp BP Pulse Ox 11/15/19 12:23 97.6 F 59 L 20 123/74 98 11/15/19 09:00 98 F 70 20 105/67 95 11/15/19 03:00 98.4 F 65 17 133/80 97 Weight Admit Weight 208 lb Weight 208 lb I&O: 11/14/19 11/15/19 11/16/19 06:59 06:59 06:59 Intake Total 1999 5100 Output Total 2500 5400 Balance -500 -300 Result Diagrams: 11/15/19 05:30 11/15/19 05:31 Additional Labs: Accuchecks 11/15/19 11/15/19 11/14/19 12:16 05:34 21:01 POC Glucose 237 H 238 H 227 H 11/14/19 11/14/19 17:47 12:42 POC Glucose 255 H 234 H Hospitalist ROS - Medication Medications: Active Medications Generic Name Dose Route Start Last Admin Trade Name Freq PRN Reason Stop Dose Admin Acetaminophen 1,000 mg 11/10/19 17:13 11/10/19 23:03 Tylenol PO 1,000 mg Q6H PRN Administration Moderate to Severe Pain (6-10) Hydrocodone Bitart/Acetaminophen 1 tab 11/09/19 11:58 11/15/19 12:09 Allison 10/325 PO 1 tab Q6H PRN Administration Moderate Pain (4-6) Alprazolam 0.25 mg 11/09/19 12:46 11/15/19 08:59 Xanax PO 0.25 mg TIDPRN PRN Administration Anxiety Atorvastatin Calcium 10 mg 11/09/19 21:00 11/14/19 20:47 Lipitor PO 10 mg HS PAULA Administration Buspirone HCl 15 mg 11/09/19 21:00 11/15/19 08:59 Buspar PO 15 mg BID PAULA Administration Docusate Sodium 100 mg 11/09/19 21:00 11/15/19 08:59 Colace PO 100 mg BID PAULA Administration Famotidine 20 mg 11/08/19 21:00 11/15/19 08:54 Pepcid PO 20 mg BID PAULA Administration Gabapentin 600 mg 11/09/19 15:00 11/15/19 08:57 Neurontin PO 600 mg TID PAULA Administration Lactated Ringer's 1,000 mls @ 100 mls/hr 11/10/19 08:00 11/15/19 06:15 Lactated Ringer's IV 1,000 mls .Q10H PAULA Administration Vancomycin HCl 1.5 gm/ Device 300 mls @ 200 mls/hr 11/10/19 06:00 11/15/19 05 :26 IVPB 300 mls 0600,1800 PAULA Administration Insulin Glargine 25 units/ 0.25 mls @ 0 mls/hr 11/12/19 09:00 11/15/19 08:54 Miscellaneous Medication SC 0.25 mls QAM PAULA Administration Ibuprofen 600 mg 11/10/19 17:13 11/13/19 20:59 Motrin PO 600 mg Q6H PRN Administration Pain Insulin Human Lispro 0 units 11/08/19 18:16 11/15/19 12:21 Humalog SC 3 unit .MILD SLIDING SCALE PRN Administration Mild Correctional Scale Insulin Human Lispro 0 units 11/12/19 01:21 11/14/19 21:14 Humalog SC 2 units .BEDTIME SLIDING SC PRN Administration Bedtime Correctional Scale Melatonin 3 mg 11/09/19 11:58 11/13/19 20:59 Melatonin PO 3 mg HSPRN PRN Administration Insomnia Metformin HCl 1,000 mg 11/10/19 08:00 11/15/19 08:59 Glucophage PO 1,000 mg BID-WM PAULA Administration Metronidazole 500 mg 11/14/19 21:00 11/15/19 08:54 Flagyl PO 500 mg TID PAULA Administration Polyethylene Glycol 34 gm 11/09/19 21:00 11/15/19 09:15 Miralax PO Not Given BID PAULA Tamsulosin HCl 0.4 mg 11/10/19 09:00 11/15/19 08:57 Flomax PO 0.4 mg DAILY PAULA Administration Throat Lozenges 1 aron 11/12/19 11:16 11/12/19 14:28 Cepastat Lozenges PO 1 aron Q2H PRN Administration Sore Throat Tramadol HCl 100 mg 11/11/19 11:18 11/15/19 09:00 Ultram PO 100 mg Q6H PRN Administration Severe Pain (7-10) - Exam General Appearance: NAD, awake alert Eye: PERRL ENT: normocephalic atraumatic Neck: supple Gastrointestinal: no palpable masses Psychiatric: normal affect, normal behavior, A&O x 3 Hosp A/P - Plan (1) Pelvic fluid collection Code(s): R18.8 - OTHER ASCITES Status: Acute Perirectal and periprostatic abscess drained 11/10/2019, culture growing back staph Cystoscopy with suprapubic catheter placed at the same time - on vanc and cefepime -sahra shari MRSA of 11/09 (2) Diabetes mellitus type 2 in nonobese Code(s): E11.9 - TYPE 2 DIABETES MELLITUS WITHOUT COMPLICATIONS Status: Chronic -Lantus to 25 units in AM (3) Hyperlipidemia Code(s): E78.5 - HYPERLIPIDEMIA, UNSPECIFIED Status: Chronic (4) Peripheral neuropathy Code(s): G62.9 - POLYNEUROPATHY, UNSPECIFIED Status: Chronic (5) Anxiety Code(s): F41.9 - ANXIETY DISORDER, UNSPECIFIED Status: Acute (6) COVID-19 virus detected Code(s): U07.1 - COVID-19 Status: Acute (7) Hepatitis C Code(s): B19.20 - UNSPECIFIED VIRAL HEPATITIS C WITHOUT HEPATIC COMA Status: Chronic - Plan covid detected in november 08 - pt anxious to know when he can retest and when it would be negative. - --- pt also from [facility], wondering how he is going to get there. to do Need to address how long he needs to have suprapubic catheter and needs follow up - on vanc and cefepime--------------> switched to Zosyn--------> will continue for 3 weeks duration -sahra shari MRSA and anaerobe [of 11/09] - he has r. PICC line, Hepatitis C -Viral count over 3 million -Can be pursued in the outpatient setting -I talked to Dr. Aleman and he is aware of this patient and the day will follow in the outpatient clinic. Magalys- prostate abscess - status post drainage - Suprapubic catheter tube diversion -urology wants him to follow-up in the clinic -for now cw suprapubic diversion tube upon discharge. Patient lives in [place] and he cannot go home until all his medical issues almost stable. - he needs to be on IV antibiotics for 3 weeks and his Zosyn is 3 times a day infusion he would benefit with local rehab versus LTAC for the time being. confectionery laboratory manager is trying to arrange this.
--- NOTE | 2019-11-15 14:05 | PRG ---
DATE OF SERVICE: 11/15/2019 Mr. Bueno is doing well today. His wound care was changed today by Wound Care. Unfortunately, I was not called. Temperature 97.6 degrees, pulse 59, respiratory rate 20, and blood pressure 123/74. Wound Care reports that his wound looks good. Cultures reveal MRSA . As noted, he had a large abscess and it has been treated adequately by Wound Care. He can be discharged home anytime on IV antibiotics per Dr. Sullivan and hospitalist. Job ID: [id number]
[2019-11-15] MEDS: Atorvastatin Calcium 10 MG TAB PO SCH (20:39)
[2019-11-16] MEDS: ALPRAZolam 0.25 MG TAB PO PRN ×2 (03:37→10:34)
[2019-11-16] MEDS: Lactated Ringer's 1,000 ML IV SCH ×2 (04:46→15:29)
[2019-11-16] MEDS: HumaLOG 300 UNITS/3 ML VIAL SC PRN ×2 (05:15→12:20)
[2019-11-16] MEDS: Vancomycin 1.5 GRAM/300 ML BAG 1.5 GM in Premix Bag 1 BAG IVPB SCH ×2 (05:15→17:11)
[2019-11-16 06:26] LABS: #Eosinphils 0.2 thou/uL (0.0-0.7); #Lymphocytes 0.8 thou/uL (1.20-3.40); #Monocytes 0.3 thou/uL (0.11-0.59); #Neutrophils 3.2 thou/uL (1.40-6.50); %Eosinophils 4.3 % (0.0-10.0); %Lymphocytes 16.9 % (21.0-51.0); %Neutrophils 71.9 % (42.0-75.0); Hemoglobin 9.2 g/dL (14.0-18.0); Mean Corpuscular HGB CONC 32.5 g/dL (32.0-36.0); Mean Corpuscular Hemoglobin 28.5 pg (27.0-31.0); Mean Corpuscular Volume 87.8 fL (78.0-98.0); Mean Platelet Volume 7.5 fL (7.4-10.4); Platelet Count 143 thou/uL (130-400); RBC Distribution Width 13.8 % (11.5-14.5); Red Blood Cell (RBC) Count 3.21 mill/uL (4.70-6.10); White Blood Cell (WBC) Count 4.5 thou/uL (4.8-10.8)
[2019-11-16 06:50] LABS: Anion Gap 13 mmol/L (10-20); BUN (Urea Nitrogen) 22 mg/dL (8.4-25.7); Calc. Creatinine Clearance 139 mL/min (70-130); Calcium 8.9 mg/dL (7.8-10.44); Carbon Dioxide 26 mmol/L (22-29); Chloride 101 mmol/L (98-107); Estimated GFR-MDRD Greater than 90; Glucose 205 mg/dL (70-105); Potassium 4.1 mmol/L (3.5-5.1); Sodium 136 mmol/L (136-145)
--- NOTE | 2019-11-16 07:45 | PRG ---
DATE OF SERVICE: 11/16/2019 SUBJECTIVE: The patient is resting, easily arousable. He had some mild dysuria last few days; however, this is improving. He is afebrile. Inquires regarding disposition. OBJECTIVE: VITAL SIGNS: Stable. Afebrile. GENITOURINARY: Urine output is clearing, clear yellow. Minimal sediment is noted. ABDOMEN: Soft. Suprapubic tube site is clean, dry, and intact. : Uncircumcised. There is mild bilateral hydrocele. There is no evidence of perineal, scrotal cellulitis, or erythema of concern. LABORATORY DATA: Labs are stable. IMPRESSION AND PLAN: Mr. Bueno is a 58-year-old male, COVID positive. 1. Hepatitis C. 2. Large perirectal periprostatic, prostatic abscess, status post I and D. Currently has wound VAC, postop day #5. 3. Suprapubic tube, cystoscopy by Urology. Continue current regimen with wound VAC, IV antibiotics per Alen Christie and vancomycin. Await disposition as patient will require prolonged IV antibiotic therapy. Continue suprapubic tube. Job ID: [id number]
[2019-11-16] MEDS: Insulin Glargine 25 UNITS in Pre-Filled Syringe 1 EACH SC SCH (08:38)
[2019-11-16] MEDS: Famotidine 20 MG TAB PO SCH ×2 (08:39→20:00)
[2019-11-16] MEDS: Tamsulosin HCl 0.4 MG CAP PO SCH (08:39)
[2019-11-16] MEDS: metFORMIN 500 MG TAB PO SCH ×2 (08:39→17:11)
[2019-11-16] MEDS: busPIRone HCl 5 MG TAB PO SCH ×2 (08:39→20:00)
[2019-11-16] MEDS: metroNIDAZOLE 500 MG TAB PO SCH ×3 (08:39→20:00)
[2019-11-16] MEDS: Gabapentin 300 MG CAP PO SCH ×3 (08:39→20:01)
[2019-11-16] MEDS: Docusate 100 MG CAP PO SCH ×2 (08:55→20:01)
[2019-11-16] MEDS: Polyethylene Glycol 3350 17 GM Packet PO SCH ×2 (08:55→20:31)
[2019-11-16] MEDS: HYDROcodone/Acetaminophen 10/325 mg Tablet PO PRN (10:34)
--- NOTE | 2019-11-16 13:02 | PDOC.HOSPP ---
- Subjective Encounter Date: 11/16/19 Encounter Time: 09:40 Subjective: Over 45 minutes spent on patient's care today. Patient is quite upset that he wants to leave he lives in [place]. He also told he follows with the GI specialist in [place] for his hepatitis C and he wants us to contact his GI doctor IN [place] for further recommendations. He also wants us to contact his primary care to set up a placement for him in [place] so that he can continue his antibiotics there. I have explained to the best of my knowledge is current clinical care and plan and the need that he needs to stay in facility where they provide tid IV abx. caseworker protective services is working and trying to find the placement where he could continue the antibiotics for [address] Gonzales has seen him yesterday; based on the wound care the abscess has been drained and the wound is healing well. Per surgery he can be discharged anytime with antibiotics. - Objective Vital Signs & Weight: Vital Signs (12 hours) Temp Pulse Resp BP Pulse Ox 11/16/19 08:52 97.8 F 81 18 116/72 94 L 11/16/19 08:00 94 L 11/16/19 04:30 98.4 F 70 17 131/80 96 Weight Admit Weight 208 lb Weight 208 lb I&O: 11/15/19 11/16/19 11/17/19 06:59 06:59 06:59 Intake Total 5100 5600 Output Total 5400 5700 Balance -300 -100 Result Diagrams: 11/16/19 06:04 11/16/19 06:04 Additional Labs: Accuchecks 11/16/19 11/16/19 11/15/19 12:07 04:59 20:52 POC Glucose 213 H 209 H 216 H 11/15/19 17:34 POC Glucose 224 H Hospitalist ROS - Medication Medications: Active Medications Generic Name Dose Route Start Last Admin Trade Name Freq PRN Reason Stop Dose Admin Acetaminophen 1,000 mg 11/10/19 17:13 11/10/19 23:03 Tylenol PO 1,000 mg Q6H PRN Administration Moderate to Severe Pain (6-10) Hydrocodone Bitart/Acetaminophen 1 tab 11/09/19 11:58 11/16/19 10:34 Rayle 10/325 PO 1 tab Q6H PRN Administration Moderate Pain (4-6) Alprazolam 0.25 mg 11/09/19 12:46 11/16/19 10:34 Xanax PO 0.25 mg TIDPRN PRN Administration Anxiety Atorvastatin Calcium 10 mg 11/09/19 21:00 11/15/19 20:39 Lipitor PO 10 mg HS PAULA Administration Buspirone HCl 15 mg 11/09/19 21:00 11/16/19 08:39 Buspar PO 15 mg BID PAULA Administration Docusate Sodium 100 mg 11/09/19 21:00 11/16/19 08:55 Colace PO Not Given BID PAULA Famotidine 20 mg 11/08/19 21:00 11/16/19 08:39 Pepcid PO 20 mg BID PAULA Administration Gabapentin 600 mg 11/09/19 15:00 11/16/19 08:39 Neurontin PO 600 mg TID PAULA Administration Lactated Ringer's 1,000 mls @ 100 mls/hr 11/10/19 08:00 11/16/19 04:46 Lactated Ringer's IV 1,000 mls .Q10H PAULA Administration Vancomycin HCl 1.5 gm/ Device 300 mls @ 200 mls/hr 11/10/19 06:00 11/16/19 05 :15 IVPB 300 mls 0600,1800 PAULA Administration Insulin Glargine 25 units/ 0.25 mls @ 0 mls/hr 11/12/19 09:00 11/16/19 08:38 Miscellaneous Medication SC 0.25 mls QAM PAULA Administration Ibuprofen 600 mg 11/10/19 17:13 11/13/19 20:59 Motrin PO 600 mg Q6H PRN Administration Pain Insulin Human Lispro 0 units 11/08/19 18:16 11/16/19 05:15 Humalog SC 3 unit .MILD SLIDING SCALE PRN Administration Mild Correctional Scale Insulin Human Lispro 0 units 11/12/19 01:21 11/15/19 20:50 Humalog SC 2 units .BEDTIME SLIDING SC PRN Administration Bedtime Correctional Scale Melatonin 3 mg 11/09/19 11:58 11/13/19 20:59 Melatonin PO 3 mg HSPRN PRN Administration Insomnia Metformin HCl 1,000 mg 11/10/19 08:00 11/16/19 08:39 Glucophage PO 1,000 mg BID-WM PAULA Administration Metronidazole 500 mg 11/14/19 21:00 11/16/19 08:39 Flagyl PO 500 mg TID PAULA Administration Polyethylene Glycol 34 gm 11/09/19 21:00 11/16/19 08:55 Miralax PO Not Given BID PAULA Tamsulosin HCl 0.4 mg 11/10/19 09:00 11/16/19 08:39 Flomax PO 0.4 mg DAILY PAULA Administration Throat Lozenges 1 aron 11/12/19 11:16 11/12/19 14:28 Cepastat Lozenges PO 1 aron Q2H PRN Administration Sore Throat Tramadol HCl 100 mg 11/11/19 11:18 11/15/19 09:00 Ultram PO 100 mg Q6H PRN Administration Severe Pain (7-10) - Exam General Appearance: NAD, awake alert Eye: PERRL ENT: normocephalic atraumatic Neck: supple Heart: RRR Respiratory: normal chest expansion Hosp A/P - Plan (1) Pelvic fluid collection Code(s): R18.8 - OTHER ASCITES Status: Acute Perirectal and periprostatic abscess drained 11/10/2019, culture growing back staph Cystoscopy with suprapubic catheter placed at the same time - on vanc and cefepime -sahra shari MRSA of 11/09 (2) Diabetes mellitus type 2 in nonobese Code(s): E11.9 - TYPE 2 DIABETES MELLITUS WITHOUT COMPLICATIONS Status: Chronic -Lantus to 25 units in AM (3) Hyperlipidemia Code(s): E78.5 - HYPERLIPIDEMIA, UNSPECIFIED Status: Chronic (4) Peripheral neuropathy Code(s): G62.9 - POLYNEUROPATHY, UNSPECIFIED Status: Chronic (5) Anxiety Code(s): F41.9 - ANXIETY DISORDER, UNSPECIFIED Status: Acute (6) COVID-19 virus detected Code(s): U07.1 - COVID-19 Status: Acute (7) Hepatitis C Code(s): B19.20 - UNSPECIFIED VIRAL HEPATITIS C WITHOUT HEPATIC COMA Status: Chronic - Plan covid detected in november 08 - pt anxious to know when he can retest and when it would be negative. - --- pt also from [facility], wondering how he is going to get there. to do Need to address how long he needs to have suprapubic catheter and needs follow up - on vanc and cefepime--------------> switched to Zosyn--------> will continue for 3 weeks duration -sahra shari MRSA and anaerobe [of 11/09] - he has r. PICC line, Hepatitis C -Viral count over 3 million -Can be pursued in the outpatient setting -I talked to Dr. Aleman and he is aware of this patient and the day will follow in the outpatient clinic. Magalys- prostate abscess - status post drainage - Suprapubic catheter tube diversion -urology wants him to follow-up in the clinic -for now cw suprapubic diversion tube upon discharge. Patient lives in [place] and he cannot go home until all his medical issues almost stable. - he needs to be on IV antibiotics for 3 weeks and his Zosyn is 3 times a day infusion he would benefit with local rehab versus LTAC for the time being. horticultural manager is trying to arrange this. th caseworker protective services is working and trying to find the placement where he could continue the antibiotics for [address] Gonzales has seen him yesterday; based on the wound care the abscess has been drained and the wound is healing well. Per surgery he can be discharged anytime with antibiotics. 12/05 is the last date for completion of his antibiotics. We are going to continue with the vancomycin 1.5 g twice a day and Flagyl 500 mg 3 times a day p.o. until December 05.
[2019-11-16] MEDS: Atorvastatin Calcium 10 MG TAB PO SCH (20:01)
[2019-11-16] MEDS: Ibuprofen 200 MG TAB PO PRN (20:02)
[2019-11-16] MEDS: Melatonin 3 MG TAB PO PRN (20:02)
[2019-11-17] MEDS: Ibuprofen 200 MG TAB PO PRN (04:45)
[2019-11-17] MEDS: ALPRAZolam 0.25 MG TAB PO PRN ×2 (04:45→12:33)
[2019-11-17] MEDS: Vancomycin 1.5 GRAM/300 ML BAG 1.5 GM in Premix Bag 1 BAG IVPB SCH (05:20)
[2019-11-17] MEDS: HumaLOG 300 UNITS/3 ML VIAL SC PRN ×2 (05:21→12:39)
--- NOTE | 2019-11-17 07:34 | PRG ---
DATE OF SERVICE: 11/17/2019 SUBJECTIVE: The patient is sleeping, appears comfortable. OBJECTIVE: Vital signs are stable. He is afebrile. I's and O's 3960 in, 4600 out. Urine output demonstrates clearing, yellow, minimal sediment. LABORATORY DATA: No new labs. He has had no evidence of leukocytosis or fever. Creatinine 0.79. IMPRESSION AND PLAN: 1. Mr. Bueno is a 58-year-old male, presents with large perirectal, periprostatic, small prostatic abscess, status post I and D by General Surgery, postop day #6. 2. Cysto, suprapubic tube by Urology. Urinary diversion due to large pelvic abscess. Currently on IV vancomycin and Zosyn. Will need IV antibiotics until December 05 per Infectious Disease. Continue suprapubic tube for urinary diversion. 3. Hepatitis C. 4. COVID-19 positive. 5. Disposition, pending. Job ID: [id number]
[2019-11-17] MEDS: busPIRone HCl 5 MG TAB PO SCH (08:39)
[2019-11-17] MEDS: Tamsulosin HCl 0.4 MG CAP PO SCH (08:40)
[2019-11-17] MEDS: Docusate 100 MG CAP PO SCH (08:40)
[2019-11-17] MEDS: Insulin Glargine 25 UNITS in Pre-Filled Syringe 1 EACH SC SCH (08:40)
[2019-11-17] MEDS: Famotidine 20 MG TAB PO SCH (08:40)
[2019-11-17] MEDS: Gabapentin 300 MG CAP PO SCH ×2 (08:40→15:46)
[2019-11-17] MEDS: Polyethylene Glycol 3350 17 GM Packet PO SCH (08:40)
[2019-11-17] MEDS: metroNIDAZOLE 500 MG TAB PO SCH ×2 (08:40→15:46)
[2019-11-17] MEDS: metFORMIN 500 MG TAB PO SCH (08:40)
[2019-11-17 09:59] VITALS: BP 141/74; TEMP 98
[2019-11-17] MEDS: traMADol HCl 50 MG TAB PO PRN (10:37)
--- NOTE | 2019-11-17 17:10 | DIS ---
DATE OF ADMISSION: 11/08/2019 DATE OF DISCHARGE: 11/17/2019 DISCHARGE MEDICATIONS: 1. Vancomycin 1.5 mg twice a day until December 05, 19 more days to go; Flagyl 500 mg three times a day until December 05. These are the 2 medications added as new. 2. Buspirone 15 mg twice a day. 3. Gabapentin 600 mg 3 times a day. 4. Docusate 100 mg twice a day. 5. Melatonin 3 mg at bedtime. 6. Metformin 1000 mg twice a day. 7. Lipitor 40 mg at bedtime. DISCHARGE DIAGNOSES: Pelvic fluid collection; perirectal and periprostatic abscess drained on November 09. Cultures growing methicillin-resistant Staphylococcus aureus, status post cystoscopy and suprapubic catheter placed at the same time; type 2 diabetes mellitus; hyperlipidemia; peripheral neuropathy, on gabapentin; coronavirus disease positive; active hepatitis C with the viral count over 3 million. CONSULTS: General Surgery with Dr. Galvan and urologist with Dr. Stanford. Infectious Disease with Dr. Sullivan. Consult with the natural gas plant supervisor, Dr. Carter. PHYSICAL EXAMINATION: VITAL SIGNS: On the day of discharge, his temperature is 98, pulse 68, blood pressure 141/74, saturating 98% on room air. The patient has been seen by me. Wound Care Team is addressing his buttocks wound. He appears well. He wants to make sure that when he goes to [facility] that his room has a phone. Wound looks good, healing. Cultures reveal MRSA. Surgery cleared him from their point. He will continue the wound care at [facility]. HOSPITAL COURSE: This is a 58-year-old male, who lives in [place], was in [facility], transferred to [facility] recently. He has ongoing indwelling Lloyd catheter. He brought in here because of the right perirectal gluteal induration and redness. CT of the abdomen and pelvis showed periprostatic changes, inflammatory changes, and abscess. He had a suprapubic tube diversion done by urologist. Also, perirectal and periprostatic abscess drained on November 09. Bacterial culture grew MRSA. C. diff antigen negative. COVID positive on November 08. Initially, he was started on vancomycin and cefepime, and then changed later to vancomycin and Flagyl for 3-week duration. His last dose of antibiotics should be on December 05. A script is given for both vancomycin and Flagyl. His vancomycin trough should be monitored periodically and the dose should be titrated up accordingly to keep the vancomycin at therapeutic range. The patient has a right PICC line. Regarding his hepatitis C, I initiated the outpatient consult with Dr. Guicho Aleman, who agreed to see him in the clinic. However, later we found out that the patient has already been followed at [facility]. We will leave to the patient's responsibility to follow up with the GI specialist in [place] for the same. The patient lives in [place] and he needs to complete his 3 weeks of antibiotics for his perirectal and periprostatic abscess that has been drained and growing MRSA at [facility] and then, likely he can go home. DISCHARGE INSTRUCTIONS: 1. Activity as tolerated with supervision. 2. Diabetic diet. 3. Follow up with PCP 1 week after being discharged from the rehab. 4. Follow up with the GI specialist at [place] regarding hepatitis C management. TIME SPENT: Discharge time took over 35 minutes. Job ID: [id number] [id number]
== END 2019-11-17 16:33 | DRG 344 ==
LOC: ERS 10:22 → T4-A 16:44
PROVIDERS: ADMIT Emergency Medicine; ATTEND Emergency Medicine
PROC: 8E0ZXY6 Isolation (ICD-10-PCS; 2019-11-08)
PROC: 0D9P0ZZ Drainage of Rectum, Open Approach (ICD-10-PCS; principal; 2019-11-10)
PROC: 0T9B40Z Drainage of Bladder with Drainage Device, Percutaneous Endoscopic Approach (ICD-10-PCS; 2019-11-10)
PROC: 0T9B70Z Drainage of Bladder with Drainage Device, Via Natural or Artificial Opening (ICD-10-PCS; 2019-11-10)
PROC: 0W9J0ZZ Drainage of Pelvic Cavity, Open Approach (ICD-10-PCS; 2019-11-10)
DX: K61.1 Rectal abscess (principal); U07.1 COVID-19; K65.1 Peritoneal abscess; N41.2 Abscess of prostate; E87.1 Hypo-osmolality and hyponatremia; E78.5 Hyperlipidemia, unspecified; E78.00 Pure hypercholesterolemia, unspecified; F41.9 Anxiety disorder, unspecified; E11.42 Type 2 diabetes mellitus with diabetic polyneuropathy; E87.8 Other disorders of electrolyte and fluid balance, not elsewhere classified; D63.8 Anemia in other chronic diseases classified elsewhere; I10 Essential (primary) hypertension; E88.09 Other disorders of plasma-protein metabolism, not elsewhere classified; F17.210 Nicotine dependence, cigarettes, uncomplicated; K70.30 Alcoholic cirrhosis of liver without ascites; K59.09 Other constipation; E11.65 Type 2 diabetes mellitus with hyperglycemia; B19.20 Unspecified viral hepatitis C without hepatic coma; N40.0 Benign prostatic hyperplasia without lower urinary tract symptoms; E11.51 Type 2 diabetes mellitus with diabetic peripheral angiopathy without gangrene; B95.62 Methicillin resistant Staphylococcus aureus infection as the cause of diseases classified elsewhere; Z95.5 Presence of coronary angioplasty implant and graft; Z89.512 Acquired absence of left leg below knee; Z88.5 Allergy status to narcotic agent; Z79.899 Other long term (current) drug therapy; Z79.84 Long term (current) use of oral hypoglycemic drugs; Z79.02 Long term (current) use of antithrombotics/antiplatelets
CPT/HCPCS: 36415; 36416; 74177; 80048; 80053; 80202; 83036; 83930; 83935; 84300; 85025; 86803; 87070; 87076; 87077; 87186; 87205; 87324; 87389; 87449; 87522; 87635; 96361; 96365; 96367; 96375; J0692; J1815; J1885; J2405; J2704; J3010; J3370; J3490; Q9967; S0020; U0003